=== PATIENT | male | born 1970 | race Caucasian/White ===

== ENCOUNTER 2017-01-22 16:27 | Emergency (ER) | payer OTHER ==
[~2017-01-22] VITALS: Ht 175.3 cm; Wt 93.3 kg
[~2017-01-22 16:27] MED LIST: AMBI10TA OR; AMIT50TA2 OR; ATIV1TAB2 OR; CLON0.3T OR; EPIP0.3I IM; PRIL20CA OR; TRAZODONE PO; Ultram OR; VALI10TA OR
[2017-01-22] MEDS ORDERED: HYDR50TA70 PO (17:08)
[2017-01-22] MEDS ORDERED: TRAZ1TAB14 PO (17:08)
[2017-01-22] MEDS ORDERED: DIAZ10TA2 PO (17:08)
[2017-01-22] MEDS ORDERED: adderall PO (17:08)
[2017-01-22] MEDS ORDERED: TIZA4CAP3 PO (17:08)
[2017-01-22] MEDS ORDERED: CLEO300C2 PO (17:28)
[2017-01-22] MEDS ORDERED: ALBE200T7 PO (18:40)
[2017-01-22 18:53] VITALS: BP 147/94
== END 2017-01-22 19:09 | disposition home or self-care (01) ==
LOC: M ED 16:27
DX: B88.9 Infestation, unspecified (principal); Z79.899 Other long term (current) drug therapy; Z79.2 Long term (current) use of antibiotics

== ENCOUNTER 2017-01-27 16:27 | Emergency (ER) | payer OTHER ==
[~2017-01-27] VITALS: Ht 175.3 cm; Wt 90.9 kg
[2017-01-27 16:27] VITALS: BP 159/100
[~2017-01-27 16:27] MED LIST changes: +ALBE200T7 PO; +CLEO300C2 PO; +DIAZ10TA2 PO; +HYDR50TA70 PO; +TIZA4CAP3 PO; +TRAZ1TAB14 PO; +adderall PO
[2017-01-27] MEDS ORDERED: ALBE200T7 PO ×2 (17:42→18:06)
--- NOTE | 2017-01-27 18:02 | ED PDOC ---
Post-Departure Follow-Up PT PRESENTS AGAIN TODAY WITH HIS . THIS COUPLE SAW THIS FIELD HAND FOR THE SAME RECENTLY AND COMPLAIN THAT NOW THEIR SYMPTOMS ARE WORSE. PT WERE SEEN INITIALLY FOR SUSPECTED SKIN PARASITES. PTS HAD PICTURES ON THEIR PHONES OF DIFFERENT THINGS THAT RESEMBLED WORMS OR CRABS AND HAVE BEEN AFFECTING THIS COUPLE SINCE NOVEMBER 2016. PTS WERE PRESCRIBED AN ANTI-PARASITIC MEDICATION ALBENZA AND DISCHARGED. PTS STATE THAT THEY RECEIVED THE MEDICATION AND STARTED IT TODAY AND BELIEVE THAT NOW THE PARASITES ARE CRAWLING OUT OF THEIR SKIN. COMPLAINS OF PAIN AT A SITE OF A MOLE/SKIN TAG WHERE WORMS WERE CRAWLING OUT OF HER EARLIER TODAY AND THAT THEY HAVE SAMPLES OF THE PARASITES WITH THEM. THIS PT HAS A BAG OF DIFFERENT CONTAINERS, CLEAR TAPE WITH "SAMPLES". NONE OF THESE APPEAR TO BE ANY SORT OF LIVING OR ONCE-LIVING CREATURE. ONE CONTAINER APPEARED TO HAVE A BALL OF HAIR IN IT AND THE STATED THAT IF WE TURNED IT OVER, " YOU CAN SEE IT'S DIGESTIVE SYSTEM AND THESE ARE IT'S ANTENNA AND CAN YOU SEE IT' S TAIL?" PTS ARE DISTRESSED IN ROOM AND STATING THEY WILL GO HOME AND CONTINUE TO PICK AT ONE ANOTHER WITH TWEEZERS BECAUSE THE MEDICATION IS WORKING. SATHYA ARRIETA PA-C Jan 27, 2017 18:02
== END 2017-01-27 18:02 | disposition home or self-care (01) ==
LOC: M ED 16:27
DX: B89 Unspecified parasitic disease (principal); I10 Essential (primary) hypertension; F41.9 Anxiety disorder, unspecified; F32.9 Major depressive disorder, single episode, unspecified; Z79.899 Other long term (current) drug therapy

== ENCOUNTER 2017-01-28 13:34 | Emergency (ER) | payer OTHER ==
[2017-01-28 16:45] LABS: MEAN CORPUSCULAR HEMOGLOBIN 29.8 pg (27.0-33.0); MEAN CORPUSCULAR HGB CONC 35.1 g/dl (32.0-36.5); RED CELL DISTRIBUTION WIDTH 13.5 % (11.5-14.5); WHITE BLOOD COUNT 8.3 K/mm3 (4.0-10.0)
[2017-01-28 17:20] LABS: ALBUMIN/GLOBULIN RATIO 1.21 (1.00-1.93); ALKALINE PHOSPHATASE 106 U/L (45-117); ALT/SGPT 26 U/L (12-78); ANION GAP 7 MEQ/L (8-16); AST/SGOT 16 U/L (15-37); BILIRUBIN,DIRECT 0.2 MG/DL (0.0-0.2); BILIRUBIN,TOTAL 0.6 MG/DL (0.2-1.0); BLOOD UREA NITROGEN 18 MG/DL (7-18); CARBON DIOXIDE LEVEL 27 MEQ/L (21-32); CHLORIDE LEVEL 105 MEQ/L (98-107); CREATININE FOR GFR 1.27 MG/DL (0.70-1.30); GLOMERULAR FILTRATION RATE > 60.0 (>60); GLUCOSE, FASTING 105 MG/DL (70-105); POTASSIUM SERUM 4.2 MEQ/L (3.5-5.1); SODIUM LEVEL 139 MEQ/L (136-145); TOTAL PROTEIN 7.3 GM/DL (6.4-8.2)
[2017-01-28 18:56] LABS: METHADONE URINE NEGATIVE (NEGATIVE)
[2017-01-28 21:57] VITALS: BP 128/81
== END 2017-01-28 22:11 | disposition home or self-care (01) ==
LOC: M ED 13:34 → EDBD 13:34 → M ED 22:11
DX: F43.0 Acute stress reaction (principal); F17.200 Nicotine dependence, unspecified, uncomplicated; Z79.899 Other long term (current) drug therapy

== ENCOUNTER → 2017-01-31 | Outpatient (REF) | payer OTHER ==
[~2017-01-31] MED LIST changes: +ADDE1TAB14 PO; +CLON0.3T PO; +GABA-279 PO; +GABA-283 PO; +HYDR50CA2 PO; +MELO7.5T7 PO
== END ==
LOC: M SFHCPLAZ 16:04
PROVIDERS: ATTEND Internal Medicine Infectious Disease
DX: R21 Rash and other nonspecific skin eruption (principal)

== ENCOUNTER → 2017-02-12 | Outpatient (REF) | payer OTHER | LOC: M SFHCLERA 11:37 | PROVIDERS: ATTEND Dermatology | DX: L98.9 Disorder of the skin and subcutaneous tissue, unspecified (principal) ==

== ENCOUNTER 2017-02-19 12:00 | Inpatient (IN) | payer OTHER ==
[~2017-02-19] VITALS: Ht 175.3 cm; Wt 90.4 kg
[2017-02-19] MEDS: NICOTINE 21MG/24HR 1 EA TRANSDERMAL TD SCH (09:00)
[~2017-02-19 12:00] MED LIST changes: -ADDE1TAB14 PO; -CLON0.3T PO; -GABA-279 PO; -GABA-283 PO; -HYDR50CA2 PO; -MELO7.5T7 PO
[2017-02-19] MEDS ORDERED: MELO7.5T7 PO (12:36)
[2017-02-19] MEDS ORDERED: GABA-283 PO (12:36)
[2017-02-19 13:11] LABS: MEAN CORPUSCULAR HEMOGLOBIN 30.6 pg (27.0-33.0); MEAN CORPUSCULAR HGB CONC 35.7 g/dl (32.0-36.5); MEAN CORPUSCULAR VOLUME 85.7 fl (80.0-96.0); RED CELL DISTRIBUTION WIDTH 13.7 % (11.5-14.5); WHITE BLOOD COUNT 4.1 K/mm3 (4.0-10.0)
[2017-02-19] MEDS ORDERED: KETOROLAC 30 MG/ML VIAL (J1885) IM ONE (13:15)
[2017-02-19 13:39] LABS: ALBUMIN 3.4 GM/DL (3.2-5.2); ALBUMIN/GLOBULIN RATIO 1.13 (1.00-1.93); ALKALINE PHOSPHATASE 93 U/L (45-117); ALT/SGPT 33 U/L (12-78); ANION GAP 8 MEQ/L (8-16); AST/SGOT 17 U/L (15-37); BILIRUBIN,DIRECT 0.2 MG/DL (0.0-0.2); BILIRUBIN,TOTAL 0.5 MG/DL (0.2-1.0); BLOOD UREA NITROGEN 21 MG/DL (7-18); CALCIUM LEVEL 8.4 MG/DL (8.5-10.1); CARBON DIOXIDE LEVEL 28 MEQ/L (21-32); CHLORIDE LEVEL 103 MEQ/L (98-107); CREATININE FOR GFR 1.03 MG/DL (0.70-1.30); GLOMERULAR FILTRATION RATE > 60.0 (>60); GLUCOSE, FASTING 98 MG/DL (70-105); SODIUM LEVEL 139 MEQ/L (136-145); TOTAL PROTEIN 6.4 GM/DL (6.4-8.2)
[2017-02-19] MEDS ORDERED: POTASSIUM CHLORIDE 10 MEQ SR TABLET PO ONE (13:45)
[2017-02-19 15:08] LABS: METHADONE URINE NEGATIVE (NEGATIVE)
[2017-02-19] MEDS ORDERED: diazePAM 5 MG TAB PO ONE (16:15)
[2017-02-19] MEDS ORDERED: ADDE1TAB14 PO (17:03)
[2017-02-19] MEDS ORDERED: GABA-279 PO (17:03)
[2017-02-19] MEDS ORDERED: CLON0.3T PO (17:03)
[2017-02-19] MEDS ORDERED: HYDR50CA2 PO (17:04)
[2017-02-19 18:19] VITALS: BP 136/85
[2017-02-19] MEDS ORDERED: MAALOX 30 ML SUSP *UDC PO PRN (19:30)
[2017-02-19] MEDS ORDERED: hydrOXYzine 50 MG TAB PO PRN (19:30)
[2017-02-19] MEDS ORDERED: MOM 30ML SUSPENSION UDC PO PRN (19:30)
[2017-02-19] MEDS: ADDERALL 5 MG TAB PO SCH (21:00)
[2017-02-19] MEDS: tiZANidine 4 MG TAB PO PRN (21:11)
[2017-02-19] MEDS: cloNIDine 0.1 MG TAB PO SCH (21:12)
[2017-02-19] MEDS: traZODone 50 MG TAB PO SCH (21:12)
[2017-02-20 07:20] VITALS: BP 136/87
[2017-02-20] MEDS: NICOTINE 21MG/24HR 1 EA TRANSDERMAL TD SCH (08:06)
[2017-02-20] MEDS: ADDERALL 5 MG TAB PO SCH (08:07)
[2017-02-20] MEDS: cloNIDine 0.1 MG TAB PO SCH ×3 (08:07→20:25)
[2017-02-20] MEDS: diazePAM 10 MG TAB PO PRN ×3 (08:09→21:12)
--- NOTE | 2017-02-20 09:28 | HPEPDOC ---
Medical History and Physical Date of Admission Feb 19, 2017 at 16:14 History and Physical PCP: Dr Almaguer ATTENDING: Dr. Xiang You HPI: 46yoM admitted to [facility] for unspecified psychotic disorder, being medically examined today. The patient is very anxious today. He states he has forms and parasites. He has apparently had multiple emergency room visits and primary care visits related to this. He was treated for scabies with permethrin and subsequently used 2. He was also treated through the emergency department with course of Albenza. He was also referred to Dr. Shannon, infectious disease related to this. 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 Second opinion however was requested with dermatology. This referral is pending. Wound culture was obtained 01/31/17 which was negative. Nasal/sinus culture was obtained 01/31/17 which indicated normal oliver. GI panel was requested however there were no results available for this. Today the patient provides a sample cup with what he states are bugs that he believes are coming out of him. This does not appear to be any type of insect or worm. He believes a worm is also coming out of the left groin area. Patient also states he has pain in the right foot. He does not recall any injury. No swelling or redness. Denies any fevers, chills, weakness, fatigue, RESENDEZ, CP, SOB, cough, palpitations, abdominal pain, N/V/D or changes in bowel or bladder habits. PMHx: Hypertension ADD Panic disorder DDD lumbar Insomnia Depression PSHX: Pilonidal cyst Right middle finger SOCHX: Resides in: [place], living in a motel with his family Marital Status: Kids: 2 Employment: Unemployed Tobacco use: vape ETOH: Denies Illicit Drugs: Denies IV Drug Use: Denies Tattoos done unprofessionally: 1 FAMHX: Mother: Alive, CVA Father: Alive, dementia Siblings: One brother Alive, well Children: Alive, well Unexpected deaths due to medical reasons: None. ROS: As noted in HPI, otherwise 11pt ROS of systems reviewed and remarkable for bilateral arm excoriations. Left ear excoriation. Patient states these are areas where bugs are coming out. He denies picking or scratching. PE: GEN: 46 yo M, appears stated age. Well-nourished, well developed. Anxious appearing. Alert and oriented x 3. HEENT: Normocephalic, atraumatic. Pupils are equal, round, and reactive to light. Extraocular movements are intact. No nystagmus appreciated. Sclera are nonicteric. Conjunctiva without injection. Nose midline. Nasal turbinates without bogginess. EACs both patent BL. TMs both visualized and seth with good cone of light, no bulging or erythema. No facial asymmetry. Moist mucous membranes. Dentition fair. Pharynx pink and moist, no cobblestoning. Neck supple , trachea midline. No lymphadenopathy or thyromegaly appreciated. CHEST: Regular rate and rhythm, +S1, +S2 LUNGS: Clear to auscultation bilaterally. No wheezes, rales, or rhonchi. Breathing appears symmetric and easy. Patient is speaking in full sentences. No accessory muscle use. ABD: Round, soft, non-tender, non-distended. +Bowel sounds throughout. No rebound or guarding. No costovertebral angle tenderness. EXT: Pulses 2+ bilaterally dorsalis pedis and radial. No lower extremity edema appreciated. SKIN: [place], dry, warm. Capillary refill <2sec. Excoriations are noted of the forearms bilaterally. There is a healed scar noted at the left groin. No erythema. No edema. No rashes. NEURO: No focal deficits appreciated. EKG: Pending. Wound culture 01/31/17 GRAM STAIN Final NO CELLS SEEN NO ORGANISMS SEEN WOUND CULTURE Final FULL REPORT IN LAB NOTES ([facility] and [facility]). NO GROWTH AEROBICALLY Nasal culture 01/31/17 NASAL AND SINUS CULTURE Final FULL REPORT IN LAB NOTES ([facility] and [facility]). NORMAL OLIVER PRESENT Parasite identification 01/27/17 PARASITE ID Final NO PARASITES NOTED IN SPECIMEN. A&P: 46yoM admitted to [facility] for unspecified psychotic disorder 1. Psych. Plan per Psychiatry. Obtain baseline EKG to assure the safety of psychiatric medications as they can prolong the QT interval. Request UA/urine culture. Request CT scan brain. 2. Nicotine dependence. Patch available. 3. Chronic back pain. Continue gabapentin 100 mg 3 times a day as needed. Continue tizanidine 4 mg twice a day as needed. Continue Tylenol 650 mg every 6 hours as needed. 4. Follow up with PCP on discharge. 5. Substance use. Per psychiatry. 6. Hypertension. Continue clonidine 0.3 mg by mouth 3 times a day. 7. Excoriations bilateral forearms. Apply bacitracin and dry dressing as needed. 8. Pt concern for parasitic infection. Patient has completed 2 treatments of permethrin. Completed course of Albenza. Seen by infectious disease, Dr Shannon, with impression of delusions of parasitosis. Second opinion with dermatology was pending. Request GI panel. Stool for ova/parasites. Parasite identification of provided sample requested. 9. Mild anemia. Update CBC. Request iron studies, B12, folate. 10. Abnormal TSH. Recheck TFTs. 11. Hypokalemia. Improved oral intake. Recheck CMP. 12. Right foot pain. Check x-ray of right foot. Check uric acid. Tylenol as needed. 13. Staff member Joesph present throughout exam Vital Signs Vital Signs Date Time Temp Pulse Resp B/P (MAP) Pulse Ox O2 Delivery O2 Flow Rate FiO2 02/20/17 08:07 136/87 02/20/17 07:20 98.1 77 20 Room Air 02/19/17 18:19 98 Laboratory Data Labs 24H Laboratory Tests 2 02/19/17 12:59: Urine Amphetamines Screen POSITIVEH, Urine Benzodiazepines Screen POSITIVEH, Urine Opiates Screen NEGATIVE, Urine Methadone Screen NEGATIVE, Urine Barbiturates Screen NEGATIVE, Urine Phencyclidine Screen NEGATIVE, Urine Cocaine Metabolite Screen NEGATIVE, Urine Cannabinoids Screen POSITIVEH 02/19/17 13:00: Anion Gap 8, Glomerular Filtration Rate > 60.0, Calcium Level 8.4L, Aspartate Amino Transf (AST/SGOT) 17, Alanine Aminotransferase (ALT/SGPT) 33, Alkaline Phosphatase 93, Total Bilirubin 0.5, Direct Bilirubin 0.2, Total Protein 6.4, Albumin 3.4, Albumin/Globulin Ratio 1.13, Thyroid Stimulating Hormone (TSH) 0.021L, Salicylates Level < 1.7L, Acetaminophen Level < 2.0L, Ethyl Alcohol Level < 0.003 CBC/BMP Laboratory Tests 02/19/17 13:00 Red Blood Count 4.42, Mean Corpuscular Volume 85.7, Mean Corpuscular Hemoglobin 30.6, Mean Corpuscular Hemoglobin Concent 35.7, Red Cell Distribution Width 13.7 Home Medications Scheduled Clonidine Hydrochloride (Clonidine HCl) 0.3 Mg Tab, 0.3 MG PO TID Trazodone HCl (Trazodone HCl) 150 Mg Tab, 150 MG PO QHS Scheduled PRN Diazepam (Diazepam) 10 Mg Tab, 10 MG PO Q6HP PRN for ANXIETY/AGITATION Gabapentin (Gabapentin) 100 Mg Cap, 100 MG PO TID PRN for PAIN Hydroxyzine Pamoate (Hydroxyzine Pamoate) 50 Mg Cap, 50 MG PO Q4H PRN for ANXIETY Meloxicam (Meloxicam) 7.5 Mg Tab, 7.5 MG PO PRN PRN for pain Tizanidine Hydrochloride (Tizanidine HCl) 4 Mg Cap, 4 MG PO BID PRN for MUSCLE SPASMS Allergies Coded Allergies: No Known Allergies (Unverified , 01/22/17) Ema Lim Feb 20, 2017 09:28
[2017-02-20] MEDS: GABAPENTIN 100 MG CAP PO PRN ×2 (10:00→17:04)
[2017-02-20] MEDS: ACETAMINOPHEN TAB 650MG DOSE (2X325MG) PO PRN ×2 (10:00→20:26)
--- NOTE | 2017-02-20 10:17 | REP ---
Right foot four views : There is no fracture or dislocation. Mineralization and joint spaces are normal. There are no calcifications or foreign bodies. Impression: Negative right foot . Signed by Danny Falcon MD 02/20/2017 10:08 A
--- NOTE | 2017-02-20 10:26 | REP ---
CT Head without contrast HISTORY: Altered mental status COMPARISON: 01/05/2011 There is no intraparenchymal hemorrhage, acute infarct, mass or midline shift. The ventricular system and cortical sulci are dilated consistent with minimal volume loss. There is no extra cerebral collection. There is no fracture. The visualized sinuses are clear. IMPRESSION: Minimal volume loss. Signed by Elias Azul MD 02/20/2017 10:17 A
[2017-02-20 10:48] LABS: BASO % 0.4 % (0.0-1.0); EOS % 0.4 % (0.0-3.0); LARGE UNSTAINED CELL # 0.1 K/mm3 (0.0-0.4); LARGE UNSTAINED CELL % 1.6 % (0.0-4.0); LYMPH # 1.4 K/mm3 (1.5-4.5); LYMPH % 16.4 % (24.0-44.0); MEAN CORPUSCULAR HEMOGLOBIN 29.6 pg (27.0-33.0); MEAN CORPUSCULAR HGB CONC 33.9 g/dl (32.0-36.5); MEAN CORPUSCULAR VOLUME 87.5 fl (80.0-96.0); MONO # 0.4 K/mm3 (0.0-0.8); MONO % 5.2 % (0.0-5.0); NEUTROPHILS # 5.8 K/mm3 (1.8-7.7); NEUTROPHILS % 76.1 % (36.0-66.0); PLATELET COUNT, AUTOMATED 249 k/mm3 (150-450); RED CELL DISTRIBUTION WIDTH 13.8 % (11.5-14.5); WHITE BLOOD COUNT 7.7 K/mm3 (4.0-10.0)
[2017-02-20 11:15] LABS: FOLATE 3.1 NG/ML (>5.4); VITAMIN B12 LEVEL 440 PG/ML (247-911)
[2017-02-20 11:17] LABS: ALBUMIN 3.6 GM/DL (3.2-5.2); ALBUMIN/GLOBULIN RATIO 1.09 (1.00-1.93); ALKALINE PHOSPHATASE 108 U/L (45-117); ALT/SGPT 35 U/L (12-78); ANION GAP 6 MEQ/L (8-16); AST/SGOT 18 U/L (15-37); BILIRUBIN,TOTAL 0.3 MG/DL (0.2-1.0); BLOOD UREA NITROGEN 22 MG/DL (7-18); CALCIUM LEVEL 8.8 MG/DL (8.5-10.1); CARBON DIOXIDE LEVEL 31 MEQ/L (21-32); CHLORIDE LEVEL 104 MEQ/L (98-107); CREATININE FOR GFR 0.98 MG/DL (0.70-1.30); FERRITIN 106 NG/ML (26-388); GLOMERULAR FILTRATION RATE > 60.0 (>60); GLUCOSE, FASTING 109 MG/DL (70-105); PERCENT SATURATION 33.2 % (19.7-50.0); SODIUM LEVEL 141 MEQ/L (136-145); T UPTAKE 35 % (33-40); THYROXINE (T4) 9.5 UG/DL (4.5-12.0); TOTAL IRON BINDING CAPACITY 271 UG/DL (250-450); TOTAL PROTEIN 6.9 GM/DL (6.4-8.2); URIC ACID 5.6 MG/DL (3.5-7.2)
[2017-02-20] MEDS: FOLIC ACID 1 MG TAB PO SCH (14:56)
--- NOTE | 2017-02-20 16:54 | REP ---
Thyroid ultrasound: The thyroid right lobe is mildly enlarged measuring 5.2 x 1.6 x 1.4 cm. The thyroid left lobe is normal size measuring 4.6 x 1.6 x 1.3 cm. The thyroid parenchyma is homogeneous. There are no nodules, masses or cysts. The isthmus is upper normal size measuring 4 mm thickness. Impression: Normal thyroid ultrasound. Signed by Danny Falcon MD 02/20/2017 04:45 P
[2017-02-20 18:00] VITALS: BP 164/88
--- NOTE | 2017-02-20 18:42 | MHHPE ---
DATE OF ADMISSION: 02/19/2017 CURRENT MEDICATIONS: - Valium 10 mg four times a day as needed - trazodone 150 mg at bedtime - Adderall 30 mg twice a day - clonidine 0.3 mg three times a day - Wellbutrin XL 300 mg every morning CHIEF COMPLAINT: Parasites. HISTORY OF PRESENT ILLNESS: This is a 46-year-old white male, , living with his and 9-year-old son. The patient claims to have parasites on his body. He has been to see multiple medical providers and dermatologists. 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 The patient, himself, denies that he is delusional. He is convinced that his apartment is infested by bugs. He is using bleach on the bernard and floors. He washes it over and over again. He is vacuuming the floors constantly. The patient was told by his deputy prosecuting attorney not to pay the rent due to the bug infestation. Subsequently, he has a court hearing tomorrow at 5:00 p.m. for eviction. The patient claims that he and his family are planning on moving out of state in the near future. The patient minimizes any depressive symptoms. He states that any depressive symptoms last for at most 3-5 hours at a time. He claims his appetite is good. He has lost about five pounds recently as he is so busy cleaning. He claims his concentration is fine. He is on Adderall. The patient states his energy level is fine. He sleeps well at night. The patient is on a high dose of Valium. He takes between 30 and 40 mg of Valium per day. He is vague about any anxiety disorder symptoms. The patient does have a history of drug abuse. He was in a drug rehabilitation program in the past for cannabis. The patient has attended [facility] in the past as well. The patient is unclear why he is here in the hospital. He does not believe that he has a psychiatric disorder. He is pleased, however, that the physician's clinical trials assistant has ordered some medical tests. PAST PSYCHIATRIC HISTORY: The patient is in treatment at [facility] for the past five years. The patient was in treatment in [place] for anxiety symptoms years ago. He claims he was hospitalized once here at [facility] for 36 hours about six years ago. The patient claims that he was on Tegretol and Zoloft in the past in [place] and that he might have been diagnosed with bipolar at that time. PAST MEDICAL HISTORY: Gout, hypertension. ALLERGIES: To medication, the patient denies. LEGAL ISSUES: The patient has a court hearing tomorrow. CHEMICAL DEPENDENCY: The patient's drug of choice is cannabis. SOCIAL HISTORY: The patient was born in [place]. He has two years of college. 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 The patient has been for 12 years. Both of his parents are alive. His mother has had two cerebrovascular accidents (CVAs). The patient has one brother who was in the . FAMILY PSYCHIATRIC HISTORY: The patient denies. MENTAL STATUS EXAMINATION: The patient is alert and oriented. He is quite anxious. The patient appears to have delusional beliefs about the parasitosis. He denies any auditory hallucinations. He denies feeling paranoid. No signs of grandiosity. Insight appears limited. Judgment appears limited. He is not currently depressed. He is not manic. No signs of impulsivity or dangerousness. Memory functions appear intact. ASSESSMENT: The patient appears to have chronic delusional beliefs, best suited for treatment with an antipsychotic. However, he refuses such, claiming that these symptoms are real. He prefers to stay with his Valium and Adderall combination. It is most likely that the Adderall is actually aggravating his mental status and contributing to his delusional beliefs. PLAN: Staff to contact family and outpatient provider with likely discharge tomorrow as there are no safety concerns for this patient. OSMEL
[2017-02-20] MEDS: traZODone 50 MG TAB PO SCH (20:26)
[2017-02-20] MEDS: tiZANidine 4 MG TAB PO PRN (21:12)
--- NOTE | 2017-02-20 21:49 | ECGEPIP ---
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
[2017-02-21] MEDS: diazePAM 10 MG TAB PO PRN (05:32)
[2017-02-21 07:00] VITALS: BP 131/90
[2017-02-21 08:18] VITALS: BP 150/84
[2017-02-21] MEDS: FOLIC ACID 1 MG TAB PO SCH (08:18)
[2017-02-21] MEDS: cloNIDine 0.1 MG TAB PO SCH (08:18)
[2017-02-21] MEDS ORDERED: buPROPion **XL** TABLET 150MG (WELLBUTRIN XL) PO SCH (09:00)
[2017-02-21] MEDS: NICOTINE 21MG/24HR 1 EA TRANSDERMAL TD SCH (09:00)
--- NOTE | 2017-02-22 15:23 | MHDS ---
DATE OF ADMISSION: 02/18/2017 DATE OF DISCHARGE: 02/21/2017 VITAL SIGNS: Temperature 97.8, pulse 77, respirations 18, blood pressure 131/90. LABORATORY DATA: CBC and differential within normal limits. Chemistry: The patient's BUN was elevated at 21 and 22. TSH low. Toxicology: Positive for amphetamines, benzodiazepine, and cannabinoids. DISCHARGE MEDICATIONS: - Wellbutrin XL 300 mg in the morning - trazodone 150 mg at night - diazepam 10 mg every 6 hours as needed - gabapentin 100 mg three times a day as needed for pain DISCHARGE DIAGNOSIS: Delusional disorder, somatic type, F22. CHIEF COMPLAINT: Parasites. HISTORY OF PRESENT ILLNESS: This is a 46-year-old white male, , living with his and 9-year-old son. The patient has a delusional belief that he has parasites coming out of his body, infesting his skin. He is convinced that the apartment was contaminated. He was spending hours spreading bleach on the floor, vacuuming the floor over and over again. The patient has been in to see multiple primary care physicians and dermatologists. Dr. Shannon, local infectious disease, has diagnosed him with "delusional parasitosis." PROGRESS ON THE UNIT: The patient was admitted on a 9.39 basis; however, the patient is not voicing any wish to harm himself or others. The patient clearly can function in the community, even though he has this delusional belief. He is convinced that he has a true medical condition. He refuses to take any antipsychotics. He refused Risperdal, for example, or any other medications in that class. THe patient is on Adderall, which might be contributing to his psychotic symptoms. The Adderall was discontinued here in the hospital. The patient is recommended to discontinue the Adderall upon discharge. The patient is also on a high dose of Valium. The patient signed a release for his outpatient provider and [facility]. Discharge plan is to coordinate treatment and discharge plans. As the patient did not believe that he had a psychiatric disorder and that the patient shows no signs of dangerousness or inability to take care of himself, the patient is to be discharged back to the community. Staff contacted his who confirms that the patient is not a danger to self or others and that she feels comfortable having him return home. MENTAL STATUS EXAMINATION: The patient is alert and oriented. He is reasonably cooperative. He does appear quite anxious. He reports delusional beliefs about the parasites underneath his skin. Denies any auditory hallucinations. He has possible visual hallucinations. Having shown the alleged parasites to medical staff, which are nonexistent. The patient is not hearing voices. No signs of ron. Insight appears poor. Judgment appears limited. No signs of impulsivity or dangerousness. No cognitive deficits noted. ASSESSMENT: The patient does not appear to require inpatient hospital care. He is referred back to his outpatient provider. PLAN: Discharge today. Patient is to return home to his family. Patient is strongly encouraged to discontinued his Adderall, which may be contributing to his delusional beliefs.
[2017-02-24 10:11] LABS: O+P EXAM Final report (.)
== END 2017-02-21 13:00 | disposition home or self-care (01) | DRG 760 ==
LOC: M ED 12:00 → M ED INP 16:14 → M PSY 18:12
PROVIDERS: ADMIT Psychiatry & Neurology Psychiatry; ATTEND Psychiatry & Neurology Psychiatry
DX: F22 Delusional disorders (principal); I10 Essential (primary) hypertension; Z79.899 Other long term (current) drug therapy; G47.00 Insomnia, unspecified; M51.36 Other intervertebral disc degeneration, lumbar region; F17.200 Nicotine dependence, unspecified, uncomplicated; D64.9 Anemia, unspecified; E87.6 Hypokalemia

== ENCOUNTER 2017-07-10 15:01 | Emergency (ER) | payer MEDICAID, SELFPAY, OTHER ==
[2017-07-10] MEDS ORDERED: LIDOCAINE VISCOUS 2% SOLN 15ML UDC TOP ×2 (16:00)
[2017-07-10] MEDS ORDERED: AMOXICILLIN 500 MG CAP PO ×2 (16:00)
== END 2017-07-10 15:48 | disposition home or self-care (01) ==
LOC: M ED 15:01
DX: Z76.0 Encounter for issue of repeat prescription (principal); I10 Essential (primary) hypertension; F90.9 Attention-deficit hyperactivity disorder, unspecified type; F41.9 Anxiety disorder, unspecified; F32.9 Major depressive disorder, single episode, unspecified; Z87.891 Personal history of nicotine dependence; Z79.899 Other long term (current) drug therapy
CPT/HCPCS: 99282

== ENCOUNTER 2018-01-01 14:13 | Emergency (ER) | payer OTHER, MEDICAID ==
[2018-01-01 15:36] LABS: HEMATOCRIT 40.5 % (42.0-52.0); HEMOGLOBIN 14.6 g/dl (13.5-17.5); MEAN CORPUSCULAR HEMOGLOBIN 30.7 pg (27.0-33.0); MEAN CORPUSCULAR VOLUME 85.3 fl (80.0-96.0); PLATELET COUNT, AUTOMATED 230 10^3/uL (150-450); RED BLOOD COUNT 4.75 10^6/uL (4.30-6.10); RED CELL DISTRIBUTION WIDTH 12.4 % (11.5-14.5); WHITE BLOOD COUNT 7.9 10^3/uL (4.0-10.0)
[2018-01-01 16:04] LABS: AMPHETAMINES LEVEL URINE NEGATIVE (NEGATIVE); BARBITURATES URINE NEGATIVE (NEGATIVE); BENZODIAZEPINES URINE NEGATIVE (NEGATIVE); CANNABINOIDS URINE POSITIVE (NEGATIVE); COCAINE METABOLITE URINE NEGATIVE (NEGATIVE); METHADONE URINE NEGATIVE (NEGATIVE); OPIATES URINE NEGATIVE (NEGATIVE); PHENCYCLIDINE URINE NEGATIVE (NEGATIVE)
[2018-01-01 16:16] LABS: ACETAMINOPHEN LEVEL < 2.0 UG/ML (10.0-30.0); ALBUMIN 3.3 GM/DL (3.2-5.2); ALBUMIN/GLOBULIN RATIO 1.14 (1.00-1.93); ALKALINE PHOSPHATASE 85 U/L (45-117); ALT/SGPT 27 U/L (12-78); ANION GAP 8 MEQ/L (8-16); AST/SGOT 12 U/L (7-37); BILIRUBIN,DIRECT < 0.1 MG/DL (0.0-0.2); BILIRUBIN,TOTAL 0.3 MG/DL (0.2-1.0); BLOOD UREA NITROGEN 11 MG/DL (7-18); CALCIUM LEVEL 8.1 MG/DL (8.5-10.1); CARBON DIOXIDE LEVEL 27 MEQ/L (21-32); CHLORIDE LEVEL 109 MEQ/L (98-107); CREATININE FOR GFR 1.41 MG/DL (0.70-1.30); GLOMERULAR FILTRATION RATE 56.9 (>60); GLUCOSE, FASTING 112 MG/DL (70-100); POTASSIUM SERUM 3.7 MEQ/L (3.5-5.1); SALICYLATE LEVEL 2.8 MG/DL (5.0-30.0); SODIUM LEVEL 144 MEQ/L (136-145); THYROID STIMULATING HORMONE 0.585 uIU/ML (0.358-3.740); TOTAL PROTEIN 6.2 GM/DL (6.4-8.2)
[2018-01-01 16:22] LABS: ETHYL ALCOHOL (ETHANOL) < 0.003 % (0.000-0.010)
== END 2018-01-01 17:49 | disposition home or self-care (01) ==
LOC: M ED 14:13
DX: F43.0 Acute stress reaction (principal); F32.9 Major depressive disorder, single episode, unspecified; F41.9 Anxiety disorder, unspecified; F90.9 Attention-deficit hyperactivity disorder, unspecified type; Z79.899 Other long term (current) drug therapy
CPT/HCPCS: 80320

== ENCOUNTER 2018-02-05 15:26 | Emergency (ER) | payer OTHER | END 2018-02-05 16:35 | disposition left against medical advice (07) | LOC: M ED 15:26 | DX: Z53.29 Procedure and treatment not carried out because of patient's decision for other reasons (principal) ==

== ENCOUNTER 2018-02-15 20:13 | Emergency (ER) | payer OTHER ==
[2018-02-15] MEDS: cloNIDine 0.1 MG TAB PO (21:45)
== END 2018-02-15 21:54 | disposition home or self-care (01) ==
LOC: M ED 20:13
DX: Z76.0 Encounter for issue of repeat prescription (principal); I10 Essential (primary) hypertension; F90.9 Attention-deficit hyperactivity disorder, unspecified type; Z79.899 Other long term (current) drug therapy; Z77.098 Contact with and (suspected) exposure to other hazardous, chiefly nonmedicinal, chemicals
CPT/HCPCS: 99282

== ENCOUNTER 2018-03-07 17:28 | Emergency (ER) | payer OTHER ==
[2018-03-07] MEDS: cloNIDine 0.1 MG TAB PO (18:16)
== END 2018-03-07 18:21 | disposition home or self-care (01) ==
LOC: M ED 17:28
DX: I10 Essential (primary) hypertension (principal); Z76.0 Encounter for issue of repeat prescription; F90.9 Attention-deficit hyperactivity disorder, unspecified type; Z79.899 Other long term (current) drug therapy
CPT/HCPCS: 99283

== ENCOUNTER 2018-03-12 15:08 | Emergency (ER) | payer OTHER | END 2018-03-12 17:19 | disposition home or self-care (01) | LOC: M ED 15:08 | DX: Z76.0 Encounter for issue of repeat prescription (principal); I10 Essential (primary) hypertension; F33.9 Major depressive disorder, recurrent, unspecified; F41.9 Anxiety disorder, unspecified; F90.9 Attention-deficit hyperactivity disorder, unspecified type; Z79.899 Other long term (current) drug therapy; Z77.098 Contact with and (suspected) exposure to other hazardous, chiefly nonmedicinal, chemicals | CPT/HCPCS: 99283 ==

== ENCOUNTER 2018-04-11 12:53 | Emergency (ER) | payer OTHER ==
[2018-04-11 14:04] LABS: BASO % 0.6 % (0.0-1.0); EOS # 0.1 10^3/uL (0.0-0.50); EOS % 0.9 % (0.0-3.0); HEMATOCRIT 46.9 % (42.0-52.0); HEMOGLOBIN 16.6 g/dl (13.5-17.5); IMMATURE GRANULOCYTE % 0.2 % (0-3.0); LYMPH # 1.4 10^3/uL (1.5-4.5); LYMPH % 26.9 % (24.0-44.0); MEAN CORPUSCULAR HEMOGLOBIN 31.2 pg (27.0-33.0); MEAN CORPUSCULAR HGB CONC 35.4 g/dl (32.0-36.5); MEAN CORPUSCULAR VOLUME 88.2 fl (80.0-96.0); MONO # 0.4 10^3/uL (0.0-0.8); MONO % 6.8 % (0.0-5.0); NEUTROPHILS # 3.4 10^3/uL (1.8-7.7); NEUTROPHILS % 64.6 % (36.0-66.0); PLATELET COUNT, AUTOMATED 268 10^3/uL (150-450); RED BLOOD COUNT 5.32 10^6/uL (4.30-6.10); RED CELL DISTRIBUTION WIDTH 12.8 % (11.5-14.5); WHITE BLOOD COUNT 5.3 10^3/uL (4.0-10.0)
[2018-04-11 14:08] LABS: APPEARANCE, URINE CLEAR (CLEAR); BACTERIA, URINE AUTO NEGATIVE (NEGATIVE); BILIRUBIN, URINE AUTO NEGATIVE (NEGATIVE); BLOOD, URINE BLOOD NEGATIVE (NEGATIVE); COLOR, URINE YELLOW (YELLOW); GLUCOSE, URINE (UA) AUTO NEGATIVE (NEGATIVE); KETONE, URINE AUTO NEGATIVE (NEGATIVE); LEUKOCYTE ESTERASE, URINE AUTO TRACE (NEGATIVE); MUCUS, URINE SMALL (NEGATIVE); NITRITE, URINE AUTO NEGATIVE (NEGATIVE); PROTEIN, URINE AUTO NEGATIVE (NEGATIVE); RBC, URINE AUTO 1 /HPF (0-3); SQUAMOUS EPITHELIAL CELL UR AU 0 /HPF (0-6); UROBILINOGEN, URINE AUTO 0.2 mg/dL (0.0-2.0); WBC, URINE AUTO 2 /HPF (0-3)
[2018-04-11 14:21] LABS: ANION GAP 6 MEQ/L (8-16); BLOOD UREA NITROGEN 9 MG/DL (7-18); CALCIUM LEVEL 8.6 MG/DL (8.5-10.1); CARBON DIOXIDE LEVEL 30 MEQ/L (21-32); CHLORIDE LEVEL 107 MEQ/L (98-107); CREATININE FOR GFR 1.05 MG/DL (0.70-1.30); GLOMERULAR FILTRATION RATE > 60.0 (>60); GLUCOSE, FASTING 96 MG/DL (70-100); POTASSIUM SERUM 3.9 MEQ/L (3.5-5.1); SODIUM LEVEL 143 MEQ/L (136-145)
[2018-04-11] MEDS: cloNIDine 0.2 MG TAB PO (14:51)
== END 2018-04-11 15:05 | disposition home or self-care (01) ==
LOC: M ED 12:53
DX: I10 Essential (primary) hypertension (principal); Z76.0 Encounter for issue of repeat prescription; F90.9 Attention-deficit hyperactivity disorder, unspecified type; F41.9 Anxiety disorder, unspecified; F32.9 Major depressive disorder, single episode, unspecified; Z79.899 Other long term (current) drug therapy
CPT/HCPCS: 93005

== ENCOUNTER 2018-05-12 15:27 | Emergency (ER) | payer OTHER ==
[2018-05-12] MEDS: cloNIDine 0.1 MG TAB PO (15:53)
== END 2018-05-12 15:57 | disposition home or self-care (01) ==
LOC: M ED 15:27
DX: Z76.0 Encounter for issue of repeat prescription (principal); I10 Essential (primary) hypertension; Z79.899 Other long term (current) drug therapy
CPT/HCPCS: 99283

== ENCOUNTER 2018-05-23 11:11 | Emergency (ER) | payer OTHER | END 2018-05-23 12:08 | disposition home or self-care (01) | LOC: M ED 11:11 | DX: I10 Essential (primary) hypertension (principal); F41.9 Anxiety disorder, unspecified | CPT/HCPCS: 99282 ==

== ENCOUNTER 2018-05-29 12:04 | Emergency (ER) | payer OTHER | END 2018-05-29 13:36 | disposition home or self-care (01) | LOC: M ED 12:04 | DX: Z76.0 Encounter for issue of repeat prescription (principal); I10 Essential (primary) hypertension; F90.9 Attention-deficit hyperactivity disorder, unspecified type; Z79.899 Other long term (current) drug therapy | CPT/HCPCS: 99283 ==

== ENCOUNTER 2018-08-07 13:16 | Emergency (ER) | payer OTHER ==
[~2018-08-07] VITALS: Ht 175.3 cm; Wt 88.6 kg
[2018-08-07 13:16] VITALS: BP 133/85
[~2018-08-07 13:16] MED LIST changes: +ADDE1TAB14 PO; +ADDE30CA3; +AMPHET/DEXTR; +AMPHET/DEXTR PO; +CLON0.3T PO; +DOXE50CA; +GABA-1171 PO; +GABA-845 PO; +HYDR50CA2 PO; +HYDR50TA70; +LORA1TAB12; +MELO7.5T7 PO; +MIRT15TA3; +OXYCOD/APAP; +REME15TA; +TIZA4CAP PO; -TIZA4CAP3 PO
[2018-08-07] MEDS ORDERED: OMEP40CA2 (13:24)
[2018-08-07] MEDS ORDERED: MELO15TA28 (13:24)
[2018-08-07] MEDS ORDERED: LISI10TA4 (13:24)
== END 2018-08-07 13:53 | disposition home or self-care (01) ==
LOC: M ED 13:16
DX: I10 Essential (primary) hypertension (principal); F41.9 Anxiety disorder, unspecified; F33.9 Major depressive disorder, recurrent, unspecified; Z79.899 Other long term (current) drug therapy

== ENCOUNTER 2018-10-03 13:54 | Emergency (ER) | payer OTHER ==
[~2018-10-03] VITALS: Ht 175.3 cm; Wt 85.3 kg
[~2018-10-03 13:54] MED LIST changes: +LISI10TA4; +MELO15TA28; +OMEP40CA2
[2018-10-03] MEDS ORDERED: CLON0.2T (14:09)
[2018-10-03] MEDS ORDERED: LISI40TA PO (14:36)
[2018-10-03] MEDS ORDERED: CLON0.2T PO (14:36)
[2018-10-03 14:41] VITALS: BP 125/75
[2018-10-03] MEDS ORDERED: cloNIDine 0.2 MG TAB PO ONE (14:45)
[2018-10-03 14:59] VITALS: BP 142/67
== END 2018-10-03 14:59 | disposition home or self-care (01) ==
LOC: M ED 13:54
DX: Z76.0 Encounter for issue of repeat prescription (principal); I10 Essential (primary) hypertension; F90.9 Attention-deficit hyperactivity disorder, unspecified type; Z79.899 Other long term (current) drug therapy

== ENCOUNTER 2018-11-14 21:16 | Emergency (ER) | payer OTHER ==
[~2018-11-14] VITALS: Ht 175.3 cm; Wt 83.6 kg
[~2018-11-14 21:16] MED LIST changes: +CLON0.2T; +CLON0.2T PO; +LISI40TA PO
[2018-11-14 21:17] VITALS: BP 177/97
[2018-11-14] MEDS ORDERED: AMLO5TAB6 PO (21:21)
[2018-11-14] MEDS ORDERED: cloNIDine 0.1 MG TAB PO ONE (23:30)
[2018-11-14] MEDS ORDERED: CLONI1TA PO (23:41)
[2018-11-14 23:52] VITALS: BP 148/82
== END 2018-11-14 23:55 | disposition home or self-care (01) ==
LOC: M ED 21:16
DX: I10 Essential (primary) hypertension (principal); Z76.0 Encounter for issue of repeat prescription; F90.9 Attention-deficit hyperactivity disorder, unspecified type; F90.0 Attention-deficit hyperactivity disorder, predominantly inattentive type; F41.9 Anxiety disorder, unspecified; F32.9 Major depressive disorder, single episode, unspecified; Z79.899 Other long term (current) drug therapy

== ENCOUNTER 2018-12-29 08:26 | Emergency (ER) | payer OTHER ==
[~2018-12-29] VITALS: Ht 175.3 cm; Wt 90.9 kg
[~2018-12-29 08:26] MED LIST changes: +AMLO5TAB6 PO; +CLONI1TA PO
[2018-12-29] MEDS ORDERED: BUSP10TA (08:35)
[2018-12-29] MEDS ORDERED: TRAZ300T2 (08:35)
[2018-12-29] MEDS ORDERED: LISI40TA (08:35)
[2018-12-29] MEDS ORDERED: AMPH30CA (08:35)
[2018-12-29] MEDS ORDERED: CLON-412 (08:35)
[2018-12-29] MEDS ORDERED: CLONI1TA PO (10:31)
[2018-12-29 10:38] VITALS: BP 121/65
== END 2018-12-29 10:39 | disposition home or self-care (01) ==
LOC: M ED 08:26
DX: Z76.0 Encounter for issue of repeat prescription (principal); F32.9 Major depressive disorder, single episode, unspecified; F41.1 Generalized anxiety disorder; F90.9 Attention-deficit hyperactivity disorder, unspecified type; I10 Essential (primary) hypertension; F12.90 Cannabis use, unspecified, uncomplicated

== ENCOUNTER 2019-01-08 10:19 | Emergency (ER) | payer OTHER ==
[~2019-01-08] VITALS: Ht 175.3 cm; Wt 86.4 kg
[2019-01-08 10:19] VITALS: BP 138/76
[~2019-01-08 10:19] MED LIST changes: +AMPH1CAP5; +BUSP10TA; +CLON-412; +LISI40TA; -LORA1TAB12; +LORA1TAB4; -OMEP40CA2; +OMEP40CA97; +TRAZ300T2
== END 2019-01-08 10:25 | disposition left against medical advice (07) ==
LOC: M ED 10:19
DX: Z76.0 Encounter for issue of repeat prescription (principal); Z53.21 Procedure and treatment not carried out due to patient leaving prior to being seen by health care provider

== ENCOUNTER 2020-01-21 00:37 | Day surgery (SDC) | payer OTHER ==
[~2020-01-21] VITALS: Ht 175.3 cm; Wt 86.1 kg
[2020-01-21] MEDS ORDERED: NS 1,000 ML IV SCH (04:15)
[2020-01-21 04:56] LABS: HEMATOCRIT 40.1 % (42.0-52.0); MEAN CORPUSCULAR HEMOGLOBIN 31.6 pg (27.0-33.0); MEAN CORPUSCULAR HGB CONC 34.9 g/dl (32.0-36.5); MEAN CORPUSCULAR VOLUME 90.5 fl (80.0-96.0); PLATELET COUNT, AUTOMATED 249 10^3/uL (150-450); RED BLOOD COUNT 4.43 10^6/uL (4.30-6.10); WHITE BLOOD COUNT 8.6 10^3/uL (4.0-10.0)
[2020-01-21 05:14] LABS: CALCIUM LEVEL 8.5 MG/DL (8.5-10.1); CREATININE FOR GFR 2.22 MG/DL (0.70-1.30); GLOMERULAR FILTRATION RATE 33.4 (>56); POTASSIUM SERUM 3.6 MEQ/L (3.5-5.1)
--- NOTE | 2020-01-21 08:40 | REP ---
REASON: Rule out metallic foreign body. There is a linear metallic foreign body jus proximal or the level of the gastroesophageal junction. This measures approximately 2 cm in length and less than 1 mm in width and is consistent with the patient's history of ingesting a nail. The intestinal gas pattern is nonspecific. IMPRESSION: Findings as described above. Electronically Signed by Keenan Mesa DO 01/21/2020 09:18 A
[2020-01-21] MEDS ORDERED: ROCURONIUM BROMIDE 50 MG/5 ML VIAL As Ordered ONE (09:04)
[2020-01-21] MEDS ORDERED: LIDOCAINE 2% 100MG/5ML SDV (FOR ANES.) As Ordered ONE (09:04)
[2020-01-21] MEDS ORDERED: propofoL 200 MG/20 ML VIAL As Ordered ONE (09:04)
[2020-01-21] MEDS ORDERED: SUCCINYLCHOLINE 100 MG/5 ML SYRINGE (J0330) As Ordered ONE (09:04)
[2020-01-21] MEDS ORDERED: ONDANSETRON 4MG/2ML VIAL As Ordered ONE (09:04)
[2020-01-21] MEDS ORDERED: MIDAZOLAM INJ 2MG/2ML VIAL (J2250 PER 1MG) As Ordered ONE (09:05)
[2020-01-21] MEDS ORDERED: fentaNYL 100 MCG/2 ML INJECTION (J3010) As Ordered ONE ×2 (09:05→11:12)
[2020-01-21] MEDS ORDERED: dexameTHASONE 4 MG/ML 1ML VIAL (J1100 PER 1MG) As Ordered ONE (09:06)
--- NOTE | 2020-01-21 10:44 | ECGEPIP ---
[facility] - ED Test Date: 2020-01-21 Pat Name: TEE MENDIOLA Department: Room: - Gender: Male Recovery Assistant: MR : 1970 Requested By: Nolan Walsh Order Number: [id number] Reading MD: Althea Flody Measurements Intervals [place] Rate: 83 P: 67 [place]: 151 QRS: 63 QRSD: 93 T: 55 QT: 370 QTc: 436 Interpretive Statements SINUS RHYTHM INCREASED RATE 04/11/18 Electronically Signed on 01-21-2020 10:43:51 EDT by Althea Floyd
[2020-01-21] MEDS ORDERED: LR 1,000 ML IV SCH (11:15)
[2020-01-21] MEDS ORDERED: ONDANSETRON 4MG/2ML VIAL IV PRN (11:15)
[2020-01-21] MEDS ORDERED: METOCLOPRAMIDE INJ 10MG/2ML VIAL (J2765 PER 1) IV PRN (11:15)
[2020-01-21] MEDS ORDERED: fentaNYL 100 MCG/2 ML INJECTION (J3010) IV PRN (11:15)
--- NOTE | 2020-01-21 11:18 | ROOR ---
Patient Name: Bartolo Stanley Procedure Date: 01/21/2020 9:13 AM Date of : 1970 Age: 49 Room: Main OR Gender: Male Note Status: Finalized Procedure: Upper GI endoscopy Indications: Foreign body in the esophagus Providers: Douglas Yanes MD Referring MD: Jayden Leach Jr, MD Requesting Provider: Medicines: Monitored Anesthesia Care Complications: No immediate complications. Estimated blood loss: None. Procedure: Pre-Anesthesia Assessment: - Prior to the procedure, a History and Physical was performed, and patient medications and allergies were reviewed. The patient is competent. The risks and benefits of the procedure and the sedation options and risks were discussed with the patient. All questions were answered and informed consent was obtained. Patient identification and proposed procedure were verified by the physician, the nurse and the anesthesiologist in the procedure room. Mental Status Examination: alert and oriented. Airway Examination: normal oropharyngeal airway and neck mobility. Respiratory Examination: clear to auscultation. CV Examination: normal. Prophylactic Antibiotics: The patient does not require prophylactic antibiotics. Prior Anticoagulants: The patient has taken no previous anticoagulant or antiplatelet agents. ASA Grade Assessment: II - A patient with mild systemic disease. After reviewing the risks and benefits, the patient was deemed in satisfactory condition to undergo the procedure. The anesthesia plan was to use monitored anesthesia care (MAC). Immediately prior to administration of medications, the patient was re-assessed for adequacy to receive sedatives. The heart rate, respiratory rate, oxygen saturations, blood pressure, adequacy of pulmonary ventilation, and response to care were monitored throughout the procedure. The physical status of the patient was re-assessed after the procedure. The Endoscope was introduced through the mouth, and advanced to the second part of duodenum. The upper GI endoscopy was accomplished without difficulty. The patient tolerated the procedure well. Findings: The ingested nail, partially piercing the mucosa (without perforation) were found in the distal esophagus. Removal was accomplished with a rat-toothed forceps and snare. LA Grade A (one or more mucosal breaks less than 5 mm, not extending between tops of 2 mucosal folds) esophagitis with no bleeding was found in the distal esophagus. No gross lesions were noted in the entire examined stomach. The duodenal bulb and second portion of the duodenum were normal. Impression: - The ingested nail, partially piercing the mucosa (without perforation) were found in the esophagus. Removal was successful. - LA Grade A reflux esophagitis. - No gross lesions in the stomach. - Normal duodenal bulb and second portion of the duodenum. Recommendation: - Patient has a contact number available for emergencies. The signs and symptoms of potential delayed complications were discussed with the patient. Return to normal activities tomorrow. Written discharge instructions were provided to the patient. - Clear liquid diet for 1 day, then advance as tolerated to resume previous diet. - Continue present medications. - Augmentin (amoxicillin/clavulanate) 875 mg PO q 8 hr for 5 days. - Obtain tetanus booster at your PCP clinic (depending on the vaccination history). - Observe patient in PACU for 6 hours for observation. - Telephone GI clinic if symptomatic. - Return to primary care physician. Douglas Yanes MD Douglas Yanes MD 01/21/2020 11:17:39 AM Electronically signed by Douglas Yanes MD Number of Addenda: 0 Note Initiated On: 01/21/2020 9:13 AM Estimated Blood Loss: Estimated blood loss: none.
--- NOTE | 2020-01-21 11:45 | REP ---
REASON: Followup. COMPARISON: Earlier today. The metallic radiodensity seen is completely unchanged from the prior exam and is again located at or just proximal to the level of the gastroesophageal junction. It is consistent with the given history of "swallowed a nail". There are no changes when compared to the prior exam. Electronically Signed by Keenan Mesa DO 01/21/2020 03:55 P
[2020-01-21] MEDS ORDERED: AUGMENTIN 875 MG TAB PO ONE (12:15)
[2020-01-21 13:10] VITALS: BP 129/72
[2020-02-01] MEDS ORDERED: AMLO5TAB6 PO (23:23)
== END 2020-01-21 13:29 | disposition home or self-care (01) ==
LOC: M ED 00:37 → M SDC 00:38
PROVIDERS: ATTEND Internal Medicine Gastroenterology
DX: T18.198A Other foreign object in esophagus causing other injury, initial encounter (principal); K21.0 Gastro-esophageal reflux disease with esophagitis; I10 Essential (primary) hypertension; Z79.899 Other long term (current) drug therapy; F41.9 Anxiety disorder, unspecified; F32.9 Major depressive disorder, single episode, unspecified; M10.9 Gout, unspecified
CPT/HCPCS: 43247; 74018; 76010; 80048; 85027; 88300; 93005; 96360; 96361; 99285; J0330; J1100; J2250; J2405; J3010; U0002

== ENCOUNTER 2020-02-01 19:42 | Inpatient (IN) | payer OTHER ==
[~2020-02-01] VITALS: Ht 175.3 cm; Wt 88.6 kg
[~2020-02-01 19:42] MED LIST changes: +AMLO1TAB24 PO; -AMLO5TAB6 PO
[2020-02-01] MEDS ORDERED: NS 2,590 ML in IV 1 EA IV ONE (20:30)
[2020-02-01 20:50] LABS: BASO % 0.4 % (0.0-1.0); EOS % 0.2 % (0.0-3.0); HEMATOCRIT 42.9 % (42.0-52.0); LYMPH # 1.1 10^3/uL (1.5-5.0); LYMPH % 12.8 % (24.0-44.0); MEAN CORPUSCULAR HEMOGLOBIN 31.3 pg (27.0-33.0); MEAN CORPUSCULAR VOLUME 89.4 fl (80.0-96.0); MONO # 0.8 10^3/uL (0.0-0.8); MONO % 8.8 % (0.0-5.0); NEUTROPHILS # 6.6 10^3/uL (1.5-8.5); NEUTROPHILS % 77.6 % (36.0-66.0); PLATELET COUNT, AUTOMATED 289 10^3/uL (150-450); WHITE BLOOD COUNT 8.5 10^3/uL (4.0-10.0)
--- NOTE | 2020-02-01 21:00 | REPVR ---
PROCEDURE INFORMATION: Exam: CT Cervical Spine Without Contrast Exam date and time: 02/01/2020 8:43 PM Age: 49 years old Clinical indication: Other: Syncope TECHNIQUE: Imaging protocol: Computed tomography images of the cervical spine without contrast. Radiation optimization: All CT scans at this facility use at least one of these dose optimization techniques: automated exposure control; mA and/or kV adjustment per patient size (includes targeted exams where dose is matched to clinical indication); or iterative reconstruction. COMPARISON: Thyroid, ST head+neck US 02/20/2017 2:36 PM FINDINGS: Vertebrae: No acute fracture. Normal alignment. C2-C3: Slight interspace narrowing with early degenerative change and no spinal or foraminal stenosis. C3-C4: Mild interspace narrowing with minimal degenerative changes of uncovertebral joints and no significant spinal or foraminal stenosis. C4-C5: Mild interspace narrowing with minimal posterior protrusion and paracentral osteophytes and no significant spinal or foraminal stenosis. C5-C6: Moderate interspace narrowing with mild posterior osteophytes and bilateral degenerative changes. There is low normal size of the spinal canal and mild left neural foraminal stenosis. C6-C7: Moderate interspace narrowing with minimal paracentral posterior osteophytes and degenerative changes bilaterally. There is mild left neural foraminal stenosis. C7-T1: Slight anterolisthesis with no significant spinal or foraminal stenosis. Soft tissues: Unremarkable. Lungs: Lung apices are normal. IMPRESSION: 1. Multilevel degenerative changes with mild left neural foraminal stenosis at C5-C6 and C6-C7. 2. No acute fracture or subluxation. Electronically signed by: Flaco Arias On 02/01/2020 21:00:22 PM
[2020-02-01 21:06] LABS: INR 1.06; PROTHROMBIN TIME 13.5 SECONDS (11.8-14.0)
--- NOTE | 2020-02-01 21:06 | REPVR ---
PROCEDURE INFORMATION: Exam: CT Head Without Contrast Exam date and time: 02/01/2020 8:43 PM Age: 49 years old Clinical indication: Syncope and collapse TECHNIQUE: Imaging protocol: Computed tomography of the head without contrast. Radiation optimization: All CT scans at this facility use at least one of these dose optimization techniques: automated exposure control; mA and/or kV adjustment per patient size (includes targeted exams where dose is matched to clinical indication); or iterative reconstruction. COMPARISON: CT Head without contrast 02/20/2017 9:56 AM FINDINGS: Brain: Normal. No hemorrhage. Unremarkable white matter. No mass effect. Ventricles: Normal. No ventriculomegaly. Bones/joints: Unremarkable. No acute fracture. Sinuses: Visualized sinuses are unremarkable. No fluid levels. Mastoid air cells: Visualized mastoid air cells are well aerated. Soft tissues: Unremarkable. IMPRESSION: Negative noncontrast head CT without change from 02/20/2017. Electronically signed by: Flaco Arias On 02/01/2020 21:05:51 PM
[2020-02-01 21:07] LABS: PARTIAL THROMBOPLASTIN TIME 27.2 SECONDS (25.0-38.4)
[2020-02-01 21:27] LABS: ALBUMIN 3.9 GM/DL (3.2-5.2); ALT/SGPT 37 U/L (12-78); AMYLASE 45 U/L (25-115); BILIRUBIN,DIRECT 0.1 MG/DL (0.0-0.2); BILIRUBIN,TOTAL 0.5 MG/DL (0.2-1.0); BLOOD UREA NITROGEN 48 MG/DL (7-18); C REACTIVE PROTEIN QUANTITATIV 0.99 MG/DL (0.00-0.30); CALCIUM LEVEL 8.5 MG/DL (8.5-10.1); CARBON DIOXIDE LEVEL 25 MEQ/L (21-32); CHLORIDE LEVEL 96 MEQ/L (98-107); CK-MB VALUE MASS 9.1 NG/ML (<3.6); CPK CREATINE PHOSPHOKINASE 433 U/L (39-308); CREATININE FOR GFR 7.58 MG/DL (0.70-1.30); GLOMERULAR FILTRATION RATE 8.1 (>56); GLUCOSE, FASTING 138 MG/DL (70-100); POTASSIUM SERUM 3.5 MEQ/L (3.5-5.1); SODIUM LEVEL 136 MEQ/L (136-145); TOTAL PROTEIN 7.3 GM/DL (6.4-8.2); TROPONIN I < 0.02 NG/ML (< 0.10)
[2020-02-01] MEDS ORDERED: cefTRIAXone SOD 2 GM in D5W MINI-BAG PLUS 50 ML IV ONE (21:45)
[2020-02-01] MEDS ORDERED: NS 500 ML IV ONE (22:15)
[2020-02-01] MEDS ORDERED: TRAZ1TAB14 PO (23:23)
[2020-02-01] MEDS ORDERED: LISI40TA PO (23:23)
[2020-02-01] MEDS ORDERED: ADDE30CA3 PO (23:23)
[2020-02-01] MEDS ORDERED: PROAAER10 INH (23:23)
[2020-02-01] MEDS ORDERED: ADDE30TA PO (23:23)
[2020-02-01] MEDS ORDERED: AMLO1TAB24 PO (23:23)
[2020-02-01] MEDS ORDERED: HYDR-3363 PO (23:23)
[2020-02-01] MEDS: NS 1,000 ML IV SCH (23:37)
[2020-02-01] MEDS ORDERED: ALBUTEROL 90 MCG/ACT 8GM HFA INHALER INH PRN (23:45)
[2020-02-01] MEDS ORDERED: hydrOXYzine 25 MG TAB PO PRN (23:45)
[2020-02-02] VITALS (12 sets, daily range): BP systolic 84–124; BP diastolic 48–68
--- NOTE | 2020-02-02 00:35 | REPVR ---
PROCEDURE INFORMATION: Exam: US Retroperitoneal Limited, Kidneys Exam date and time: 02/01/2020 12:26 AM Age: 49 years old Clinical indication: Abnormal findings; Abnormal lab test; Abnormal kidney function lab tests; Additional info: Adrian TECHNIQUE: Imaging protocol: Real-time ultrasound of the retroperitoneum with image documentation. Examination was focused on the kidneys. COMPARISON: No relevant prior studies available. FINDINGS: Right kidney: The right kidney measures 9.9 cm in its cephalocaudad dimension and 5.1 x 6.1 cm in diameter. No mass, cyst or hydronephrosis. Right renal parenchyma is hyperechoic. Left kidney: The left kidney measures 11.9 cm in its cephalocaudad dimension and 5.6 x 4.7 cm in diameter. No mass, cyst or hydronephrosis. Left renal parenchyma is hyperechoic. Bladder: The urinary bladder is unremarkable. IMPRESSION: 1. Hyperechoic renal parenchyma bilaterally consistent with medical renal disease. 2. Otherwise negative renal sonogram. No hydronephrosis. Electronically signed by: Flaco Arias On 02/02/2020 00:34:40 AM
--- NOTE | 2020-02-02 00:46 | HPEPDOC ---
General Date of Admission Feb 01, 2020 at 23:37 Date of Service: Feb 01, 2020 Attending Physician: MANJIT ROMERO MD Chief Complaint The patient is a 49-year-old male admitted with a reason for visit of Acute Renal Failure, Syncope. Source: Patient, RN/MD Exam Limitations: No limitations Timing/Duration: 24 hours Severity: Severe Associated Symptoms: Syncope History of Present Illness 49 yo M with a history of HTN, ADD, panic disorder, DDD, prior [facility] admission for psychosis and possible CKD per last labs in EMR with recent Cr of 2.2, who presented to the ED reporting acute general illness with witnessed syncope at home today in the setting of recent poor for 3-4 days with low fluid intake except a few drinks of gatorade. In the ED, his CT head and C-spine were negative for acute traumatic injury with C-spine noted miltilevel degenerative changes with mild foraminal stenosis of C5-C6 and C6-C7. Meanwhile Cr was 7.58 with a BUN of 48, na 136, K 3.5, na 8.5, hgb 15, platelets 289, CK 488, LFTs wnl, TSH 1.16, normal lactate, EKG without ST changes and NSR and negative troponin. He was hypotensive to SBP low 80s and was given aggressive fluids to a total 3L, empiric ceftriaxone after BCx were drawn and nephrology was called by Dr. You and Dr. Arredondo recommended continued aggressive hydration and he is now being admitted to the ICU for severe KIMANI and associated hypotension without evidence of ongoing infection. Home Medications Scheduled Amlodipine Besylate (Amlodipine Besylate) 5 Mg Tablet, 5 MG PO DAILY, (Reported) Dextroamphetamine/Amphetamine (Adderall Xr 30 mg Capsule) 30 Mg Cap.er.24h, 1 CAP PO DAILY, (Reported) Dextroamphetamine/Amphetamine (Adderall 30 mg Tablet) 30 Mg Tablet, 30 MG PO DAILY, (Reported) TAKES IN AFTERNOON BEFORE 1600 Lisinopril (Lisinopril) 40 Mg Tablet, 40 MG PO DAILY, (Reported) Trazodone HCl (Trazodone HCl) 150 Mg Tablet, 300 MG PO QHS, (Reported) Scheduled PRN Albuterol Sulfate (Proair Hfa) 8.5 Gm Hfa.aer.ad, 2 PUFF INH Q4H PRN for SHORTNESS OF BREATH, (Reported) Hydroxyzine HCl (Hydroxyzine HCl) 25 Mg Tablet, 25 MG PO QID PRN for ANXIETY, (Reported) Allergies Coded Allergies: No Known Allergies (Unverified , 02/01/20) Past Medical History Medical History HTN ADD Depression Prior admission to [facility] for psychosis Degenerative disc disease (lumbar) Nicotine addiction, vapes Panic disorder CKD with last known Cr of 2.2 Surgical History Pilonidal cyst Right middle finger Family History Mother - CVA. Father - dementia 1 sibling brother who is well Social History * Smoker: other (vapes) Alcohol: Denies Drugs: denies Recent Travel/Sick Contacts: Denies: Recent travel, Recent sick contacts Psychosocial History: Depression . Vapes. no alcohol, no illicit drug use. A-FIB/CHADSVASC A-FIB History Current/History of A-Fib/PAF?: No Current PO Anticoag Therapy: No Age/Risk Factor Scoring CHADSVASC: CHADSVASC Response (Comments) Value Age Risk Factor Age < 65 years old 0 Gender Risk Factor Male 0 Hx of CHF No 0 Hx of HTN Yes 1 Hx of Stroke/TIA/or VTE No 0 Hx of Diabetes No 0 Hx of Vascular Disease No 0 Total 1 Treatment Treatment ordered: NONE Reason Anticoagulant not given: Not indicated/[id number] Review of Systems Constitutional: Reports: Other (poor appetite with poor PO); Denies: Chills, Fever, Night Sweats Eyes: Denies: Pain, Vision change ENT: Denies: Head Aches, Ear Pain, Dysphagia Skin: Denies: Rash, Lesions, Breakdown Pulmonary: Denies: Dyspnea, Cough Cardiovascular: Denies: Chest Pain, Palpitations, Orthopnea, Paroxysmal Noc. Dyspnea, Lt Headedness Gastrointestinal: Denies: Nausea, Vomiting, Abdominal Pain, Diarrhea Genitourinary: Reports: Frequency (decreased frequency today); Denies: Hematuria, Retention (no prior history of) Hematologic: Denies: Bruising, Bleeding Excessively Endocrine: Denies: Polydipsia, Polyphagia, Polyuria, Heat Intolerance, Cold Intolerance, Other Endocrine Sx Musculoskeletal: Reports: Back Pain (has chronic back pain); Denies: Neck Pain, Joint Pain, Muscle Pain, Spasms Neurological: Denies: Weakness, Numbness, Change in speech, Confusion Psych: Reports: Mood Normal; Denies: Thoughts of Self Harm, Anger, Thoughts of Harming Other Physical Examination General Exam: Positive: Alert, No Acute Distress Eye Exam: Positive: PERRLA, Conjunctiva & lids normal, EOMI; Negative: Sclera icteric ENT Exam: Positive: Atraumatic, Pharynx Normal, Other ENT (edentulous); Negative: Mucous membr. moist/pink (dry MM) Neck Exam: Positive: Supple; Negative: JVD, thyromegaly Chest Exam: Positive: Clear to auscultation, Normal air movement Heart Exam: Positive: Rate Normal, Regular Rhythm, Normal S1, Normal S2; Negative: Murmurs, Rubs Telemetry: Positive: No significant arrhythmia Abdomen Exam: Positive: Normal bowel sounds, Soft; Negative: Tenderness, Hepatospenomegaly Extremity Exam: Positive: Normal pulses; Negative: Clubbing, Cyanosis, Edema Skin Exam: Positive: Nl turgor and temperature; Negative: Breakdown, Lesion Neuro Exam: Positive: Normal Speech, Strength at 5/5 X4 ext, Normal Tone, Cranial Nerves 3-12 NL Psych Exam: Positive: Mental status NL, Oriented x 3 (however is a very poor historian) Vital Signs Vital Signs Date Time Temp Pulse Resp B/P (MAP) Pulse Ox O2 Delivery O2 Flow Rate FiO2 02/01/20 23:30 60 18 90/50 (63) 97 Room Air 02/01/20 19:58 98.4 Laboratory Data Labs 24H Laboratory Tests 2 02/01/20 20:31: Immature Granulocyte % (Auto) 0.2, Neutrophils (%) (Auto) 77.6H, Lymphocytes (%) (Auto) 12.8L, Monocytes (%) (Auto) 8.8H, Eosinophils (%) (Auto) 0.2, Basophils (%) (Auto) 0.4, Neutrophils # (Auto) 6.6, Lymphocytes # (Auto) 1.1L, Monocytes # (Auto) 0.8, Eosinophils # (Auto) 0.0, Basophils # (Auto) 0.0, Nucleated Red Blood Cells % (auto) 0.0, Prothrombin Time 13.5, Prothromb Time International Ratio 1.06, Activated Partial Thromboplast Time 27.2, Anion Gap 15, Glomerular Filtration Rate 8.1L, Lactic Acid Level 2.0, Calcium Level 8.5, Total Bilirubin 0.5, Direct Bilirubin 0.1, Aspartate Amino Transf (AST/SGOT) 25, Alanine Aminotransferase (ALT/SGPT) 37, Alkaline Phosphatase 104, Total Creatine Kinase 433H, Creatine Kinase MB 9.1H, Creatine Kinase MB Relative Index 2.10, Troponin I < 0.02, C-Reactive Protein, Quantitative 0.99H, Total Protein 7.3, Albumin 3.9, Albumin/Globulin Ratio 1.1, Amylase Level 45, Thyroid Stimulating Hormone (TSH) 1.160 02/01/20 21:37: Bedside Glucose (Misc Panel) 125H CBC/BMP Laboratory Tests 02/01/20 20:31 Microbiology Microbiology 02/01/20 Blood Culture, Received Pending 02/01/20 Blood Culture, Received Pending Assessment/Plan 49 yo M with a history of HTN, ADD, panic disorder, DDD, prior [facility] admission for psychosis and possible CKD per last labs in EMR with recent Cr of 2.2, who presented to the ED reporting acute general illness with witnessed syncope at home today in the setting of recent poor for 3-4 days with low fluid intake except a few drinks of gatorade. In the ED, his CT head and C-spine were negative for acute traumatic injury with C-spine noted miltilevel degenerative changes with mild foraminal stenosis of C5-C6 and C6-C7. Meanwhile Cr was 7.58 with a BUN of 48, na 136, K 3.5, na 8.5, hgb 15, platelets 289, CK 488, LFTs wnl, TSH 1.16, normal lactate, EKG without ST changes and NSR and negative tro ponin. He was hypotensive to SBP low 80s and was given aggressive fluids to a total 3L, empiric ceftriaxone after BCx were drawn and nephrology was called by Dr. You and Dr. Arredondo recommended continued aggressive hydration and he is now being admitted to the ICU for severe KIMANI and associated hypotension without evidence of ongoing infection. Plan: KIMANI on CKD: In the setting of 3-4 days of poor to no PO and low liquid intake. -s/p 3L NS in the ED -continue NS at 125cc/hr -renal US -[place]ell for critical monitoring -nephrology consult. Dr. Arredondo was made aware by ED and recommended hydration for now with repeat AM labs -Lactate wnl, CK unimpressive -hold home amlodipine and lisinopril in the setting of hypotension and renal injury -strict I/Os -Daily weights -urine Na and Cr for FeNa -UA -trend BMP Syncope with noted hypotension: most likely 2/2 severe dehydration -s/p 3L NS in ED, continue 125cc/hr -telemetry -f/u BCx, UA -Orthostatic vitals Q8H x 3 times -EKG was non ischemic and trop negative -TTE in the morning -CT head and C-spine without acute pathology with noted multilevel degenerative changes with mild L neural foraminal stenosis at C5-C6 and C6-C7. Hypotension: Likely hypovolemic from dehydration -will continue aggressive hydration with strict I/O monitoring -serial orthostatic vitals -unlikely 2/2 infection without evidence at this time, will defer abx for now without leukocytosis, normal lactate and nonfocal examination. For now, already received empiric ceftriaxone which should cover throughout the night. -f/u BCx and UA History of HTN: -hold home meds as noted above, both CCB and ACEi DDD: -PRN tylenol for pain Panic disorder: -continue home PRN hydroxyzine Insomnia: -continue home trazodone ADD: -will hold adderall for now, to restart in the morning if telemetry without tachyarrhythmias Nicotine addiction: -will offer nicotine patch DVT ppx: heparin SQ Q8H Dispo: ICU, inpatient Plan / VTE VTE Prophylaxis Ordered?: Yes MANJIT ROMERO MD Feb 02, 2020 00:45
[2020-02-02] MEDS: HEPARIN SOD (PORCINE) 5000UNITS/ML 1ML VIAL/SYRINGE SC SCH ×3 (06:00→20:55)
[2020-02-02] MEDS: traZODone 100 MG TAB PO SCH ×2 (06:27→20:55)
[2020-02-02 07:21] LABS: HEMATOCRIT 40.4 % (42.0-52.0); HEMOGLOBIN 13.8 g/dl (13.5-17.5); MEAN CORPUSCULAR HEMOGLOBIN 31.2 pg (27.0-33.0); MEAN CORPUSCULAR HGB CONC 34.2 g/dl (32.0-36.5); MEAN CORPUSCULAR VOLUME 91.4 fl (80.0-96.0); PLATELET COUNT, AUTOMATED 241 10^3/uL (150-450); RED BLOOD COUNT 4.42 10^6/uL (4.30-6.10); WHITE BLOOD COUNT 7.1 10^3/uL (4.0-10.0)
[2020-02-02 07:35] LABS: CALCIUM LEVEL 7.7 MG/DL (8.5-10.1); CREATININE FOR GFR 5.08 MG/DL (0.70-1.30); GLOMERULAR FILTRATION RATE 12.9 (>56); MAGNESIUM LEVEL 2.6 MG/DL (1.8-2.4); PHOSPHORUS LEVEL 5.3 MG/DL (2.5-4.9); POTASSIUM SERUM 3.3 MEQ/L (3.5-5.1)
--- NOTE | 2020-02-02 08:23 | REP ---
Clinical: Sepsis/shock . Comparison: None . Findings: The mediastinum and cardiac silhouette are stable and within normal limits for portable technique. The lung jamison are clear without acute consolidation, effusion, or pneumothorax. Skeletal structures are intact. Impression: No acute cardiopulmonary process appreciated. Electronically Signed by David Palomares MD 02/02/2020 08:15 A
[2020-02-02] MEDS: AMPHETAMINE/DEXTROAMPHETAMINE 5 MG *ER* CAPSULE (ADDERALL XR) PO SCH (09:00)
[2020-02-02] MEDS: NS 1,000 ML IV SCH ×2 (09:44→17:51)
--- NOTE | 2020-02-02 10:44 | ECGEPIP ---
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
[2020-02-02] MEDS ORDERED: POTASSIUM CHLORIDE 10 MEQ SR TABLET PO ONE (10:45)
[2020-02-02] MEDS: TAMSULOSIN 0.4 MG CAP PO SCH (11:25)
[2020-02-02 11:56] LABS: SODIUM,RANDOM URINE 58 MEQ/L
[2020-02-02] MEDS ORDERED: NICOTINE 14 MG/24 HR TRANSDERMAL TD PRN (12:00)
[2020-02-02] MEDS ORDERED: ADDERALL 5 MG TAB PO ONE (13:00)
--- NOTE | 2020-02-02 13:55 | CR ---
DATE OF CONSULTATION: 02/02/2020 REQUESTING PHYSICIAN: Dr. Vanessa Dangelo CONSULTING PHYSICIAN: Dr. Arredondo REASON FOR CONSULTATION: Management of acute renal failure. CHIEF COMPLAINT: Patient presented to the hospital yesterday with syncope. HISTORY OF PRESENT ILLNESS: Mr. Bartolo Stanley is a 49-year-old male with past medical history of hypertension, depression, history of chronic kidney disease, stage III, with a baseline creatinine of around 2.2 as per beginning of this month, attention deficit hyperactivity disorder. He takes amlodipine and lisinopril at home for hypertension. He was brought into the emergency room yesterday because of acute generalized weakness and he had syncope at home. He admitted that he was not drinking enough fluids and he was working outside. 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 However, on arrival with syncope and hypotension he was found to have acute renal failure as well with a creatinine of 7.5. He was admitted to intensive care unit (ICU). He was given intravenous (IV) fluid hydration. Nephrology service was called for further help in the management of this patient. I saw and evaluated the patient today morning at the bedside in the ICU. Patient is awake and alert. His blood pressures are getting better. He is not requiring any pressors. He reports that he is feeling much better today as compared with yesterday and he is urinating now. PAST MEDICAL HISTORY: Past medical history of hypertension, attention deficit hyperactivity disorder, depression, history of psychosis in the past, panic disorder, chronic kidney disease (CKD) III with baseline creatinine of 2.2. PAST SURGICAL HISTORY: Status post right middle finger surgery and pilonidal cyst surgery. ALLERGIES: NO KNOWN DRUG ALLERGIES. FAMILY HISTORY: No significant family history of end-stage renal disease requiring hemodialysis. SOCIAL HISTORY: Patient lives at home. He smokes marijuana regularly and he uses vaping. Denies any other illicit drug abuse, and he denies any alcohol abuse. REVIEW OF SYSTEMS: Constitutional: When he came in, he felt very weak and fatigued. Eyes: He denies any blurry vision, double vision. ENT: Denies any dysphagia, odynophagia. Cardiovascular: Denies any chest pain, palpitation. Respiratory: He denies any shortness of breath. Gastrointestinal (GI): He denies any nausea, vomiting. Genitourinary: He denies any dysuria, hematuria. Musculoskeletal: He reported muscle weakness when he came in. Skin: He denies any rashes or ulcers. Hematology/Oncology: He denies any easy bleeding or bruising. Central Nervous System (CONDITIONING YARD SUPERVISOR): He came in with syncope. All other review of systems is negative. PHYSICAL EXAMINATION: General: Patient is awake, alert, oriented times three, laying in bed. Vital Signs: Temperature is 98 degrees Fahrenheit, blood pressure 124/68, pulse is 82, respiratory rate of 17, saturating 100% on room air. Head/Neck Exam: Extraocular muscles intact. Pupils equally round and reactive to light. Mucous membranes are moist. Neck is supple. There is no jugular venous distention (JVD). Cardiovascular: S1, S2, regular rate. No edema of the bilateral lower extremities. Respiratory: Chest is clear to auscultation bilaterally. Bilateral equal air entry. No rales or rhonchi. Abdomen: Soft. Positive bowel sounds. Nontender. No organomegaly. Musculoskeletal: No clubbing or cyanosis. Pulses are 2+. CONDITIONING YARD SUPERVISOR: No focal deficit. Power is 5/5 in all extremities. LAB REVIEW: CBC showed WBC 7.1, hemoglobin 13.8, platelets of 141. INR is 1.06. Urinalysis is pending. BMP on arrival showed sodium 136, potassium 3.5, chloride 96, bicarbonate 25, BUN 48, creatinine 7.5. Lactic acid was 2. Repeat BMP today, sodium 137, potassium 3.3, chloride 106, bicarbonate 27, BUN 46, creatinine of 5, calcium 7.7, phosphorus is 5.3, magnesium 2.6, a.m. cortisol was 20.4. MICROBIOLOGY: All cultures are negative so far. IMAGING: A renal ultrasound was done, which showed hyperechoic renal parenchyma bilaterally consistent with medical renal disease. HOME MEDICATIONS: Patient's home medications include: - lisinopril 40 mg daily - amlodipine 5 mg by mouth daily - Adderall XR 30 mg by mouth daily - hydroxyurea 25 mg by mouth four times a day as needed - trazodone 300 mg at bedtime CURRENT INPATIENT MEDICATIONS: Patient's medications were all reviewed by myself. Inpatient medications include normal saline boluses that were given overnight and is now getting normal saline at 125 mL/h. He was given Rocephin 2 grams IV times one dose. He is back on his home dose of Adderall. He is on hydroxyzine as needed. He has a nicotine patch. He was given a dose of potassium chloride 20 mEq by mouth times one dose today, and he is on trazodone 300 mg at bedtime. I have started him on Flomax 0.4 mg by mouth daily. ASSESSMENT: 49-year-old male with history of hypertension, attention deficit disorder, panic disorder, chronic kidney disease, stage III admitted this time because of syncope and acute renal failure. PLAN: 1. Acute kidney injury superimposed on chronic kidney disease most likely is secondary to dehydration, volume depletion and use of amlodipine and lisinopril at home. He was adequately hydrated overnight. He is getting IV fluid hydration. Patient is making urine. Bedside bladder scan was done. He made 300 mL of urine and after that he still had 200 mL in the bladder. I have started him on Flomax 0.4 mg by mouth . Daily. 2. Syncope and hypotension. All the cultures are pending. He does not have leukocytosis. Lactic acid is within the acceptable range. Most likely secondary to dehydration and use of antihypertensive medications. Hold antihypertensives at this time. Continue IV fluid hydration. 3. Attention deficit disorder. Continue home dose of Adderall at this time. 4. Hypokalemia. Patient was given potassium chloride 20 mEq by mouth times one dose today morning. 5. Hyperphosphatemia. It is secondary to renal failure. Phosphorus level should improve with improvement in the renal function. Thank you for involving me in the care of this patient. I shall be happy to follow the patient along with tomorrow morning. Patient is okay to be downgraded out of ICU into the medical-surgical unit.
[2020-02-02 15:07] LABS: APPEARANCE, URINE CLEAR (CLEAR); BACTERIA, URINE AUTO NEGATIVE (NEGATIVE); BILIRUBIN, URINE AUTO NEGATIVE (NEGATIVE); BLOOD, URINE BLOOD 1+ (NEGATIVE); COLOR, URINE YELLOW (YELLOW); GLUCOSE, URINE (UA) AUTO NEGATIVE (NEGATIVE); KETONE, URINE AUTO NEGATIVE (NEGATIVE); LEUKOCYTE ESTERASE, URINE AUTO NEGATIVE (NEGATIVE); MUCUS, URINE SMALL (NEGATIVE); NITRITE, URINE AUTO NEGATIVE (NEGATIVE); PROTEIN, URINE AUTO 1+ mg/dL (NEGATIVE); RBC, URINE AUTO 0 /HPF (0-3); SPECIFIC GRAVITY URINE AUTO 1.018 (1.002-1.035); SQUAMOUS EPITHELIAL CELL UR AU 0 /HPF (0-6); UROBILINOGEN, URINE AUTO 0.2 mg/dL (0.0-2.0); WBC, URINE AUTO 2 /HPF (0-3)
--- NOTE | 2020-02-02 15:52 | IPNPDOC ---
Text Note Date of Service The patient was seen on 02/02/20. NOTE Pt seen and examined. Hypotension 2/2 Severe dehydration in addition to BP Meds. Improving. BP improved. Cr improved. Cont IVF. Appeciate nephro input. VS,Fishbone, I+O VS, Fishbone, I+O Laboratory Tests 02/01/20 20:31 02/02/20 06:55 Vital Signs Date Time Temp Pulse Resp B/P (MAP) Pulse Ox O2 Delivery O2 Flow Rate FiO2 02/02/20 14:20 98.1 78 18 104/61 (75) 99 Room Air I&O- Last 24 Hours up to 6 AM 02/02/20 06:00 Intake Total 3140 ml Balance 3140 ml MALCOM BUSH MD Feb 02, 2020 15:52
[2020-02-03] MEDS: NS 1,000 ML IV SCH ×2 (00:33→08:41)
[2020-02-03] MEDS: HEPARIN SOD (PORCINE) 5000UNITS/ML 1ML VIAL/SYRINGE SC SCH (00:33)
[2020-02-03 06:00] VITALS: BP 96/50
[2020-02-03 08:22] LABS: BASO % 0.4 % (0.0-1.0); EOS % 0.6 % (0.0-3.0); HEMATOCRIT 37.4 % (42.0-52.0); HEMOGLOBIN 12.6 g/dl (13.5-17.5); LYMPH # 1.1 10^3/uL (1.5-5.0); LYMPH % 21.3 % (24.0-44.0); MEAN CORPUSCULAR HEMOGLOBIN 31.1 pg (27.0-33.0); MEAN CORPUSCULAR HGB CONC 33.7 g/dl (32.0-36.5); MEAN CORPUSCULAR VOLUME 92.3 fl (80.0-96.0); MONO # 0.5 10^3/uL (0.0-0.8); MONO % 9.1 % (0.0-5.0); NEUTROPHILS # 3.6 10^3/uL (1.5-8.5); NEUTROPHILS % 68.4 % (36.0-66.0); PLATELET COUNT, AUTOMATED 194 10^3/uL (150-450); RED BLOOD COUNT 4.05 10^6/uL (4.30-6.10); WHITE BLOOD COUNT 5.3 10^3/uL (4.0-10.0)
[2020-02-03] MEDS: TAMSULOSIN 0.4 MG CAP PO SCH (08:44)
[2020-02-03] MEDS: AMPHETAMINE/DEXTROAMPHETAMINE 5 MG *ER* CAPSULE (ADDERALL XR) PO SCH (08:44)
[2020-02-03 08:52] VITALS: BP_SYST 120; BP_SYST 122; BP_SYST 126; BP_DIAS 64; BP_DIAS 68; BP_DIAS 69
[2020-02-03 09:08] LABS: ALBUMIN 2.7 GM/DL (3.2-5.2); BILIRUBIN,TOTAL 0.4 MG/DL (0.2-1.0); CALCIUM LEVEL 7.7 MG/DL (8.5-10.1); CREATININE FOR GFR 1.42 MG/DL (0.70-1.30); TOTAL PROTEIN 5.9 GM/DL (6.4-8.2)
[2020-02-03] MEDS ORDERED: NICO14PA TD (10:21)
[2020-02-03] MEDS ORDERED: ADDERALL 5 MG TAB PO SCH (12:00)
[2020-02-03] MEDS ORDERED: ADDERALL 5 MG TAB PO ONE (12:00)
== END 2020-02-03 11:27 | disposition home or self-care (01) | DRG 469 ==
LOC: M ED 19:42 → M ED INP 23:37 → ENRESERV 02-02 05:16 → M ICU 02-02 06:06 → M MSPAV 02-02 14:19
PROVIDERS: ADMIT Internal Medicine; ATTEND Internal Medicine
DX: N17.9 Acute kidney failure, unspecified (principal); I95.9 Hypotension, unspecified; E83.39 Other disorders of phosphorus metabolism; E87.6 Hypokalemia; I12.9 Hypertensive chronic kidney disease with stage 1 through stage 4 chronic kidney disease, or unspecified chronic kidney disease; Z79.899 Other long term (current) drug therapy; F17.200 Nicotine dependence, unspecified, uncomplicated; M51.36 Other intervertebral disc degeneration, lumbar region; E86.0 Dehydration; G47.00 Insomnia, unspecified; F90.9 Attention-deficit hyperactivity disorder, unspecified type; N18.3 Chronic kidney disease, stage 3 (moderate)

== ENCOUNTER 2020-04-23 23:02 | Emergency (ER) | payer OTHER ==
[~2020-04-23] VITALS: Ht 175.3 cm; Wt 86.4 kg
[~2020-04-23 23:02] MED LIST changes: +ADDE30CA3 PO; +ADDE30TA PO; +HYDR-3363 PO; +NICO14PA TD; +PROAAER10 INH
[2020-04-23] MEDS ORDERED: TETANUS/DIPHTHERIA TOX ADSORB ADULT 0.5ML SYR/VIAL (90714) IM ONE (23:30)
--- NOTE | 2020-04-23 23:49 | REPVR ---
PROCEDURE INFORMATION: Exam: XR Pelvis Exam date and time: 04/23/2020 11:36 PM Age: 49 years old Clinical indication: Hip pain; Left hip; Additional info: Trauma TECHNIQUE: Imaging protocol: XR pelvis. Views: 1 or 2 view. COMPARISON: CR nose-rectum r-o f b X-RAY 01/21/2020 2:17 AM FINDINGS: Bones/joints: There is no fracture or dislocation. The hip joint spaces are preserved. No arthropathy is noted. The sacroiliac joints are unremarkable. The pubic symphysis is unremarkable. Soft tissues: Unremarkable. IMPRESSION: No fracture or dislocation. Electronically signed by: Benedicto Zabala On 04/23/2020 23:49:03 PM
--- NOTE | 2020-04-23 23:50 | REPVR ---
PROCEDURE INFORMATION: Exam: XR Chest, 1 View Exam date and time: 04/23/2020 11:36 PM Age: 49 years old Clinical indication: Trauma TECHNIQUE: Imaging protocol: XR of the chest Views: 1 view. COMPARISON: CR - PORTABLE CHEST X-RAY 02/01/2020 9:07:40 PM (The report from this study was not available for review at the time of this interpretation.) FINDINGS: Lungs: Unremarkable. No consolidation. No pulmonary edema. Pleural space: Unremarkable. No pleural effusion or pneumothorax is identified. Heart/Mediastinum: Unremarkable. No cardiomegaly. Bones/joints: Unremarkable. IMPRESSION: No acute findings. Electronically signed by: Benedicto Zabala On 04/23/2020 23:50:29 PM
--- NOTE | 2020-04-24 00:04 | REPVR ---
PROCEDURE INFORMATION: Exam: XR Left Femur Exam date and time: 04/23/2020 11:49 PM Age: 49 years old Clinical indication: Pain; Left; Patient HX: Puncture wound mid-thigh medially; Additional info: Rule out fracture TECHNIQUE: Imaging protocol: XR Left femur. Views: 2 views. COMPARISON: No relevant prior studies available. FINDINGS: Bones/joints: There is no fracture or dislocation of the left hip or left femur. There are no bony destructive changes. Soft tissues: There are foci of gas in the soft tissues in the medial aspect of the left upper thigh. No radiopaque foreign body is noted. IMPRESSION: 1. Soft tissue gas in the medial aspect of the left upper thigh. 2. No fracture or dislocation of the left hip or left femur. Electronically signed by: Benedicto Zabala On 04/24/2020 00:04:00 AM
--- NOTE | 2020-04-24 00:04 | REPVR ---
PROCEDURE INFORMATION: Exam: XR Left Knee Exam date and time: 04/23/2020 11:49 PM Age: 49 years old Clinical indication: Pain; Thigh; Left; Additional info: Rule out fracture TECHNIQUE: Imaging protocol: XR Left knee. Views: 1 or 2 views. COMPARISON: No relevant prior studies available. FINDINGS: Bones/joints: There is no fracture or dislocation. No joint effusion is identified. The joint spaces are preserved. No arthropathy is noted. Soft tissues: Unremarkable. IMPRESSION: No fracture or dislocation of the left knee. Electronically signed by: Benedicto Zabala On 04/24/2020 00:04:13 AM
[2020-04-24 00:13] LABS: BASO % 0.6 % (0.0-1.0); EOS % 0.2 % (0.0-3.0); HEMATOCRIT 39.3 % (42.0-52.0); HEMOGLOBIN 13.5 g/dl (13.5-17.5); LYMPH # 0.9 10^3/uL (1.5-5.0); LYMPH % 13.9 % (24.0-44.0); MEAN CORPUSCULAR HEMOGLOBIN 30.1 pg (27.0-33.0); MEAN CORPUSCULAR HGB CONC 34.4 g/dl (32.0-36.5); MEAN CORPUSCULAR VOLUME 87.5 fl (80.0-96.0); MONO # 0.6 10^3/uL (0.0-0.8); MONO % 9.1 % (0.0-5.0); NEUTROPHILS # 4.9 10^3/uL (1.5-8.5); PLATELET COUNT, AUTOMATED 219 10^3/uL (150-450); RED BLOOD COUNT 4.49 10^6/uL (4.30-6.10); WHITE BLOOD COUNT 6.4 10^3/uL (4.0-10.0)
[2020-04-24 00:42] LABS: ALBUMIN 3.6 GM/DL (3.2-5.2); ALT/SGPT 32 U/L (12-78); BILIRUBIN,DIRECT 0.1 MG/DL (0.0-0.2); BILIRUBIN,TOTAL 0.4 MG/DL (0.2-1.0); BLOOD UREA NITROGEN 16 MG/DL (7-18); CALCIUM LEVEL 8.7 MG/DL (8.5-10.1); CARBON DIOXIDE LEVEL 27 MEQ/L (21-32); CHLORIDE LEVEL 109 MEQ/L (98-107); CREATININE FOR GFR 1.04 MG/DL (0.70-1.30); ETHYL ALCOHOL (ETHANOL) < 0.003 % (0.000-0.010); GLOMERULAR FILTRATION RATE > 60.0 (>56); GLUCOSE, FASTING 100 MG/DL (70-100); POTASSIUM SERUM 3.6 MEQ/L (3.5-5.1); SODIUM LEVEL 142 MEQ/L (136-145); TOTAL PROTEIN 6.8 GM/DL (6.4-8.2)
[2020-04-24] MEDS ORDERED: MORPHINE 10 MG/ML 1ML VIAL (J2270) IM ONE (00:45)
[2020-04-24] MEDS ORDERED: KETAMINE HCL 200 MG/20 ML VIAL IV ONE (01:15)
[2020-04-24] MEDS ORDERED: LIDOCAINE 1% MDV 20ML VIAL SC ONE (01:15)
[2020-04-24 02:09] LABS: AMPHETAMINES LEVEL URINE POSITIVE (NEGATIVE); BARBITURATES URINE NEGATIVE (NEGATIVE); BENZODIAZEPINES URINE NEGATIVE (NEGATIVE); CANNABINOIDS URINE POSITIVE (NEGATIVE); COCAINE METABOLITE URINE NEGATIVE (NEGATIVE); METHADONE URINE NEGATIVE (NEGATIVE); OPIATES URINE POSITIVE (NEGATIVE); PHENCYCLIDINE URINE NEGATIVE (NEGATIVE)
[2020-04-24 02:30] VITALS: BP 148/80
== END 2020-04-24 02:46 | disposition home or self-care (01) ==
LOC: M ED 23:02
DX: S71.112A Laceration without foreign body, left thigh, initial encounter (principal); M25.552 Pain in left hip; V18.0XXA Pedal cycle driver injured in noncollision transport accident in nontraffic accident, initial encounter; W22.8XXA Striking against or struck by other objects, initial encounter; Y93.55 Activity, bike riding; Y92.9 Unspecified place or not applicable; F17.290 Nicotine dependence, other tobacco product, uncomplicated; Z79.899 Other long term (current) drug therapy
CPT/HCPCS: 12002; 71045; 72170; 73552; 73560; 80048; 80076; 80307; 85025; 86850; 86900; 86901; 90471; 90714; 96372; 96374; 99285; G0480; J2270

== ENCOUNTER 2020-04-30 10:37 | Emergency (ER) | payer OTHER ==
[~2020-04-30] VITALS: Ht 175.3 cm; Wt 88.9 kg
[2020-04-30] MEDS ORDERED: CEPH500C (10:45)
[2020-04-30] MEDS ORDERED: AMLO1TAB24 (10:45)
[2020-04-30] MEDS ORDERED: ONDANSETRON 4MG/2ML VIAL IV ONE (11:15)
[2020-04-30] MEDS ORDERED: MORPHINE 4 MG/ML 1ML VIAL/SYRINGE (J2270) IV ONE (11:15)
[2020-04-30] MEDS ORDERED: NS 1,000 ML IV ONE (11:15)
[2020-04-30] MEDS ORDERED: AMPICILLIN SOD/SULBACTAM SOD 3 GM in D5W MINI-BAG PLUS 100 ML IV ONE (11:15)
[2020-04-30 11:29] LABS: BASO % 0.5 % (0.0-1.0); EOS # 0.1 10^3/uL (0.0-0.5); HEMATOCRIT 39.2 % (42.0-52.0); HEMOGLOBIN 13.4 g/dl (13.5-17.5); LYMPH # 1.1 10^3/uL (1.5-5.0); LYMPH % 17.7 % (24.0-44.0); MEAN CORPUSCULAR HEMOGLOBIN 29.9 pg (27.0-33.0); MEAN CORPUSCULAR HGB CONC 34.2 g/dl (32.0-36.5); MEAN CORPUSCULAR VOLUME 87.5 fl (80.0-96.0); MONO # 0.5 10^3/uL (0.0-0.8); MONO % 7.6 % (0.0-5.0); NEUTROPHILS # 4.4 10^3/uL (1.5-8.5); PLATELET COUNT, AUTOMATED 260 10^3/uL (150-450); RED BLOOD COUNT 4.48 10^6/uL (4.30-6.10)
[2020-04-30 11:50] LABS: BLOOD UREA NITROGEN 15 MG/DL (7-18); C REACTIVE PROTEIN QUANTITATIV 1.09 MG/DL (0.00-0.30); CALCIUM LEVEL 8.6 MG/DL (8.5-10.1); CARBON DIOXIDE LEVEL 30 MEQ/L (21-32); CHLORIDE LEVEL 104 MEQ/L (98-107); CREATININE FOR GFR 1.14 MG/DL (0.70-1.30); GLOMERULAR FILTRATION RATE > 60.0 (>56); GLUCOSE, FASTING 96 MG/DL (70-100); POTASSIUM SERUM 3.5 MEQ/L (3.5-5.1); SODIUM LEVEL 137 MEQ/L (136-145)
[2020-04-30 12:06] LABS: ERYTHROCYTE SEDIMENTATION RATE 10 mm/hr (0-20)
[2020-04-30] MEDS ORDERED: BACI500O21 TOP (12:53)
[2020-04-30 12:58] VITALS: BP 136/77
--- NOTE | 2020-04-30 15:05 | REPVR ---
PROCEDURE INFORMATION: Exam: US Left Non-Vascular Joint or Other Extremity Structure, Limited Lower Extremity Exam date and time: 04/30/2020 11:47 AM Age: 49 years old Clinical indication: Injury or trauma; Fall; Puncture wound; Not specified; Upper leg; Left; Additional info: Wound to left inner thigh with firm, red area surrounding TECHNIQUE: Imaging protocol: Left US joint or other nonvascular extremity structure or structures. Real-time ultrasound with image documentation. Limited study. Exam focused on the lower extremity in the region of clinical interest. COMPARISON: No relevant prior studies available. FINDINGS: Soft tissues: Grayscale ultrasound images of the "left medial thigh area of wound" soft tissues are submitted. No focal abscess is imaged. An area of shadowing emanating from the skin, consistent with the site of puncture wound, is noted. Minimal edema is present within the imaged subcutaneous fat. No foreign body is identified. IMPRESSION: 1. No soft tissue abscess is imaged. 2. Minimal edema within the subcutaneous fat consistent with trauma and/or cellulitis. Electronically signed by: Angel Santos On 04/30/2020 15:05:34 PM
== END 2020-04-30 13:13 | disposition home or self-care (01) ==
LOC: M ED 10:37
DX: L08.9 Local infection of the skin and subcutaneous tissue, unspecified (principal); Z79.899 Other long term (current) drug therapy
CPT/HCPCS: 76882; 80048; 83605; 85025; 85652; 86140; 96365; 96375; 99283; J2270; J2405

== ENCOUNTER 2021-02-12 14:23 | Emergency (ER) | payer OTHER ==
[~2021-02-12] VITALS: Ht 175.3 cm; Wt 85.9 kg
[~2021-02-12 14:23] MED LIST changes: +ALBE200T18 PO; -ALBE200T7 PO; +AMLO1TAB24; +BACI500O21 TOP; +CEPH500C; +GABA-283 PO; -GABA-845 PO; +LISI10TA22; -LISI10TA4; -LISI40TA; -LISI40TA PO; +LISI40TA4; +LISI40TA4 PO; +MIRT-62; +OMEP40CA4; -OMEP40CA97; -REME15TA
[2021-02-12 15:52] LABS: BASO % 0.5 % (0.0-1.0); EOS % 0.7 % (0.0-3.0); HEMATOCRIT 45.9 % (42.0-52.0); HEMOGLOBIN 15.8 g/dl (13.5-17.5); LYMPH # 1.1 10^3/uL (1.5-5.0); LYMPH % 19.8 % (24.0-44.0); MEAN CORPUSCULAR HEMOGLOBIN 30.2 pg (27.0-33.0); MEAN CORPUSCULAR HGB CONC 34.4 g/dl (32.0-36.5); MEAN CORPUSCULAR VOLUME 87.8 fl (80.0-96.0); MONO # 0.4 10^3/uL (0.0-0.8); MONO % 6.9 % (2.0-8.0); NEUTROPHILS % 71.9 % (36.0-66.0); PLATELET COUNT, AUTOMATED 268 10^3/uL (150-450); RED BLOOD COUNT 5.23 10^6/uL (4.30-6.10); WHITE BLOOD COUNT 5.5 10^3/uL (4.0-10.0)
[2021-02-12] MEDS ORDERED: ISOVUE-370 76% 100ML VIAL As Ordered ONE (16:29)
[2021-02-12 16:33] LABS: ALBUMIN 3.6 GM/DL (3.2-5.2); ALT/SGPT 28 U/L (12-78); BILIRUBIN,DIRECT < 0.1 MG/DL (0.0-0.2); BILIRUBIN,TOTAL 0.3 MG/DL (0.2-1.0); CK-MB VALUE MASS < 1.0 NG/ML (<3.6); CPK CREATINE PHOSPHOKINASE 55 U/L (39-308); FREE T4 0.78 NG/DL (0.76-1.46); LIPASE 388 U/L (73-393); MB/CK RELATIVE INDEX 1.82 (< OR =4); NT-PRO BNP 5 PG/ML (<125); TOTAL PROTEIN 7.1 GM/DL (6.4-8.2); TROPONIN I < 0.02 NG/ML (< 0.10)
--- NOTE | 2021-02-12 17:06 | REP ---
INDICATION: R/O PE. COMPARISON: None. TECHNIQUE: CT angiogram chest performed following the intravenous administration of 100 cc of Isovue 370. Sagittal and coronal reconstruction images are performed. FINDINGS: Lungs: There are mild dependent atelectatic changes bilaterally. Mediastinum: No adenopathy. Pulmonary arteries: No evidence of pulmonary embolism. Debo: No adenopathy. Axilla: No adenopathy. Pleura: No effusion. Heart: Not enlarged. Thoracic aorta: No aneurysm or dissection. Upper abdominal structures: There is a small hiatal hernia. Visualized osseous structures: Unremarkable. IMPRESSION: No CT evidence of pulmonary embolism. No infiltrate seen. <Electronically signed by Danny Holt > 02/12/21 [id number]
--- NOTE | 2021-02-12 17:15 | REP ---
INDICATION: luq pain COMPARISON: None. TECHNIQUE: CT Scan of the abdomen and pelvis was performed with intravenous administration of 100 cc of Isovue 370, without oral contrast. Sagittal and coronal reconstruction images are performed. FINDINGS: Lung bases: There is a small hiatal hernia. Tiny bilateral pleural effusions with mild dependent atelectatic changes. Liver: Normal Gallbladder: Unremarkable. Spleen: Normal. Adrenals: There is a benign right adrenal myelolipoma 8.5 cm in maximum diameter.. Pancreas: Normal. Kidneys: Normal. Small and large bowel: Unremarkable. Free fluid: None. Abdominal aorta: No aneurysm or dissection. Adenopathy: None. Appendix: Not inflamed. Osseous structures: Unremarkable. Pelvis: No mass. IMPRESSION: Small hiatal hernia. Tiny bilateral effusions and mild dependent atelectatic changes. Benign right adrenal myelolipoma. <Electronically signed by Danny Holt > 02/12/21 8021
[2021-02-12] MEDS ORDERED: AMLO10TA PO (17:26)
[2021-02-12 17:33] VITALS: BP 139/81
--- NOTE | 2021-02-12 19:59 | ECGEPIP ---
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
== END 2021-02-12 17:47 | disposition home or self-care (01) ==
LOC: M ED 14:23
DX: R07.9 Chest pain, unspecified (principal); R05 Cough; K44.9 Diaphragmatic hernia without obstruction or gangrene; D35.00 Benign neoplasm of unspecified adrenal gland; Z76.0 Encounter for issue of repeat prescription; I10 Essential (primary) hypertension; F41.9 Anxiety disorder, unspecified; F90.9 Attention-deficit hyperactivity disorder, unspecified type; F17.200 Nicotine dependence, unspecified, uncomplicated; Z79.899 Other long term (current) drug therapy
CPT/HCPCS: 36415; 71275; 74177; 80047; 80076; 82550; 82553; 83690; 83880; 84439; 84443; 85025; 93005; 93041; 94760; 99285; Q9967

== ENCOUNTER 2021-05-13 16:54 | Emergency (ER) | payer OTHER ==
[~2021-05-13] VITALS: Ht 175.3 cm; Wt 86.1 kg
[~2021-05-13 16:54] MED LIST changes: +AMLO10TA PO
--- OUTSIDE RECORDS SUMMARY | 2021-05-13 16:58 | CCD ---
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 166456939 Problem Attention deficit hyperactiv ity disorder (ADHD), predominantly hyperactive type F90.1 Active confirmed 610915201 Problem Generalized anxiety disorder F41.1 Active confirme d 77416381 Problem Family history of erectile dysfunction Z84.2 A ctive confirmed 237503189 ALLERGIES Allergen (clinical drug ingredient) Drug/Non Drug Allergy do cumented on EMR Reaction Allergy Type Onset Date Status Beta ermias Anaphylaxis Non Drug Allergy Activ e ENCOUNTERS from 1970 to 2021-03-16 Encounter Location Date Provider Diagnosis [place] [id number] [facility] [phone] [place] [address] Feb, Evelina Dyson IMMUNIZATIONS No Information SOCIAL HISTORY Sex Assigned At : Social History Observation Description Sex Assigned At Unknown Education: Question Answer Notes Level of Education: Finished College Audit Question Answer Notes Total Score: 0 Interpretation: Alcohol Education Language: Question Answer Notes Languages spoken: [place] Citizen Latter-Day: Question Answer Notes Latter-Day 21 [employer] Sexual Hx: Question Answer Notes Had sex in the last 12 months (vaginal, oral, or anal)? Yes Have you ever had an STD? No with Women only Drug and Alcohol Question Answer Notes Total Score: 2 Interpretation: Low level Alcohol Screening: Question Answer Notes Did you have a drink containing alcohol in the past year? No Points 0 Interpretation Negative REASON FOR REFERRAL No Information VITAL SIGNS No information MEDICATIONS Medication SIG (Take, Route, Frequency, Duration) Notes Start Da te End Date Status Cephalexin 500 MG 1 tablet Orally four times daily for 7 day(s) Apr, Active oxyCODONE-Acetaminophen 5-325 MG 1 tablet as needed Or ally every 6 hrs for 3 days Oct, Not-Taking Viagra 100 MG 1 tablet as needed Orally Once a day for 30 day(s) May, Not-Taking Adderall 30 MG 1 tablet Orally in the afternoon Active Adderall XR 30 MG 1 capsule in the morning Orally Once a day Active Nicotine 14 MG/24HR 1 patch to skin Transdermal Once a day Active traZODone HCl 150 MG 2 tab Orally Once a day for 30 days Active Omeprazole 40 MG 1 capsule Orally Once a day as needed for 30 days Not-Taking hydrOXYzine HCl 25 mg 1-2 tablet as needed Orally four times cullen ly as needed Active Cyclobenzaprine HCl 10 MG 1 tablet as needed Orally Th ree times a day for 30 days Not-Taking amLODIPine Besylate 5 MG 1 tablet Orally Once a day for 90 day(s) Active Albuterol Sulfate HFA 108 (90 Base) MCG/ACT 1 puff as needed Inhalation every 4 hrs for 7 days Jan, Active Meloxicam 15 MG 1 tablet Orally Once a day as needed for 30 days Not-Taking PROCEDURES No Information RESULTS No Results REASON FOR VISIT amLODIPine Besylate which dose? MEDICAL (GENERAL) HISTORY Type Description Date Medical History HTN Medical History ADD panic disorder sees October at [facility] / Dr Estes Medical History Age 16-21 residential Medical History DDD lumbar osteoarthritis Medical History Insomnia Surgical History finger reconstruction Hospitalization History dehydration 01/2020 [place] No Information Health Concerns No Information MEDICAL EQUIPMENT No Information MENTAL STATUS No Information FUNCTIONAL STATUS No Information ASSESSMENTS No Information PLAN OF TREATMENT Medication Medication Name Sig Start Date Stop Date amLODIPine Besylate 5 MG 1 tablet Orally Once a day for 90 day(s ) Insurance Providers Payer Name Payer Address Payer Phone Insured Name Patient Relati onship to Insured Coverage Start Date Coverage End Date [employer] CLAIM[employer] DEPT [address] [facility] [phone] TEE MENDIOLA self
--- OUTSIDE RECORDS SUMMARY | 2021-05-13 16:58 | CCD ---
Author Author [facility] Organization [facility] Address Unknown Phone Unavailable Care Team Providers Care Pulverizer Tender Name Role Phone AGARWAL, G EDWARD RPA Unavailable Unavailable AGARWAL, G EDWARD RPA Unavailable Unavailable AGARWAL, G EDWARD RPA Unavailable Unavailable AGARWAL, G EDWARD RPA Unavailable Unavailable AGARWAL, G EDWARD RPA Unavailable Unavailable AGARWAL, G EDWARD RPA Unavailable Unavailable AGARWAL, G EDWARD RPA Unavailable Unavailable AGARWAL, G EDWARD RPA Unavailable Unavailable AGARWAL, G EDWARD RPA Unavailable Unavailable AGARWAL, G EDWARD RPA Unavailable Unavailable AGARWAL, G EDWARD RPA Unavailable Unavailable AGARWAL, G EDWARD RPA Unavailable Unavailable AGARWAL, G EDWARD RPA Unavailable Unavailable AGARWAL, G EDWARD RPA Unavailable Unavailable AGARWAL, G EDWARD RPA Unavailable Unavailable AGARWAL, G EDWARD RPA Unavailable Unavailable AGARWAL, G EDWARD RPA Unavailable Unavailable AGARWAL, G EDWARD RPA Unavailable Unavailable AGARWAL, G EDWARD RPA Unavailable Unavailable AGARWAL, G EDWARD RPA Unavailable Unavailable AGARWAL, G EDWARD RPA Unavailable Unavailable AGARWAL, G EDWARD RPA Unavailable Unavailable AGARWAL, G EDWARD RPA Unavailable Unavailable AGARWAL, G EDWARD RPA Unavailable Unavailable AGARWAL, G EDWARD RPA Unavailable Unavailable AGARWAL, G EDWARD RPA Unavailable Unavailable AGARWAL, G EDWARD RPA Unavailable Unavailable AGARWAL, G EDWARD RPA Unavailable Unavailable AGARWAL, G EDWARD RPA Unavailable Unavailable AGARWAL, G EDWARD RPA Unavailable Unavailable AGARWAL, G EDWARD RPA Unavailable Unavailable AGARWAL, G EDWARD RPA Unavailable Unavailable AGARWAL, G EDWARD RPA Unavailable Unavailable AGARWAL, G EDWARD RPA Unavailable Unavailable AGARWAL, G EDWARD RPA Unavailable Unavailable AGARWAL, G EDWARD RPA Unavailable Unavailable AGARWAL, G EDWARD RPA Unavailable Unavailable Re-disclosure Warning The records that you are about to access may contain information from federally-assisted alcohol or drug abuse programs. If such information is present, then the following federally mandated warning applies: This information has been disclosed to you from records protected by federal confidentiality rules (42 CFR part 2). The federal rules prohibit you from making any further disclosure of this information unless further disclosure is expressly permitted by the written consent of the person to whom it pertains or as otherwise permitted by 42 CFR part 2. A general authorization for the release of medical or other information is NOT sufficient for this purpose. The Federal rules restrict any use of the information to criminally investigate or prosecute any alcohol or drug abuse patient.The records that you are about to access may contain highly sensitive health information, the redisclosure of which is protected by Article 27-F of the [facility] Public Health law. If you continue you may have access to information: Regarding HIV / AIDS; Provided by facilities licensed or operated by the [facility] Office of Mental Health; or Provided by the [facility] Office for People With Developmental Disabilities. If such information is present, then the following [facility] mandated warning applies: This information has been disclosed to you from confidential records which are protected by state law. State law prohibits you from making any further disclosure of this information without the specific written consent of the person to whom it pertains, or as otherwise permitted by law. Any unauthorized further disclosure in violation of state law may result in a fine or mcc sentence or both. A general authorization for the release of medical or other information is NOT sufficient authorization for further disc losure. Family History Family Member Name Family Member Gender Family Member Status Date o f Status Description Data Source(s) Unknown Female Problem [facility] ([facility]) Encounters Encounter Providers Location Date Indications Data Source(s ) [place] [address] [facility] [address] 05/02/2021 12:00:00 AM EDT eCW1 ([facility]) [place] [address] [facility] [address] 02/27/2021 12:00:00 AM EDT eCW1 ([facility]) Outpatient Attender: JOON AGARWAL RPA 01/25 06:09:03 PM EDT - 01/25/2021 07:40:45 PM EDT [facility] ([facility] ) [place] [address] [facility] [address] 01/19/2021 12:00:00 AM EDT eCW1 ([facility]) [place] [address] [facility] [address] 08/28/2020 12:00:00 AM EST eCW1 ([facility]) [place] [address] [facility] [address] 04/27/2020 12:00:00 AM EDT eCW1 ([facility]) [place] [address] [facility] [address] 04/26/2020 12:00:00 AM EDT eCW1 ([facility]) Medications Medication Brand Name Start Date Product Form Dose Route Admi nistrative Instructions Pharmacy Instructions Status Indications Reaction Description Data Source(s) Cephalexin 500 MG Oral Tablet Cephalexin 500 MG 04/27/2020 12:00:00 AM EDT 1.0 {tablet} active Cephalexin 500 MG eCW1 ([facility]) Cephalexin 500 MG Oral Tablet Cephalexin 500 MG 04/27/2020 12:00:00 AM EDT 1.0 {tablet} active Cephalexin 500 MG eCW1 ([facility]) Cephalexin 500 MG Oral Tablet Cephalexin 500 MG 04/27/2020 12:00:00 AM EDT 1.0 {tablet} active Cephalexin 500 MG eCW1 ([facility]) Cephalexin 500 MG Oral Tablet Cephalexin 500 MG 04/27/2020 12:00:00 AM EDT 1.0 {tablet} active Cephalexin 500 MG eCW1 ([facility]) Cephalexin 500 MG Oral Tablet Cephalexin 500 MG 04/27/2020 12:00:00 AM EDT 1.0 {tablet} active Cephalexin 500 MG eCW1 ([facility]) Cephalexin 500 MG Oral Tablet Cephalexin 500 MG 04/27/2020 12:00:00 AM EDT 1.0 {tablet} active Cephalexin 500 MG eCW1 ([facility]) Insurance Providers Payer name Policy type / Coverage type Policy ID Covered green party ID Covered green party's relationship to dorman Policy Dorman Plan Information HERALCIO I [id number] Self [id number] Medicaid S [id number] S [id number] Managed Care [place] P [id number] S [id number] Medicaid Medicaid [id number] Self [id number] [employer]. [id number] Self [id number] FFS Self Pay [id number] Self [id number] ANSI-Commercial [id number] ANSI-Commercial [id number] ANSI-Commercial [id number] ANSI-Commercial twhbpfyz-36cr-7g656c53-32hg-[id number] gqlysbhs-81he-1g417v37-34nx-57u8769z3ucy ANSI-Commercial [id number]-jbtp-252p-ar91-28536b62p7pv [id number]-xldw-517t-rd13-05246a70y4kh ANSI-Commercial nkujbgdo-[id number] moogwtvq-d778-4820[id number] ANSI-Commercial 36q3ku9g-6047-8ss0-9in7-03l1vf49t0l7 97w8yj2i-1173-9hf5-5cd0-55z3ls99r4l1 ANSI-Commercial 8dtn9qt5-t0wm-53l2-soyg-0635w20ksq81 7wmt6vq0-s5up-19r4-xrke-4065j87eby30 ANSI-Commercial 8u9fmul3-8387-8176-tq2w-6zjk7e90y4o9 5b8sjei4-2579-9418-hc3s-8muo0y76k3o6 ANSI-Commercial jf3353hl-3lsy-875c-zdqi-d8094497q71y tt3082te-4nzw-160c-cepj-y2025454k15s ANSI-Commercial 0188qf72-3m62-05u2-uf33-7430264084xp 4882ut88-9n99-28a9-yh69-7966927417rj ANSI-Commercial 7w4tpx0v-e037-589i-85a2-oo559w3721w5 0x8hva1b-l132-088s-90w6-ii204e0411y8 ANSI-Commercial 9x9ul9fw-1jay-0068-oqtd-kx10hxitz3js 4d0qi1ol-2nke-0178-uzmi-ll37kvwba5qq ANSI-Commercial t3751670-45v6-01gz-h8cd-5l88971eo1k0 h7424082-77o1-11mk-w8rx-3v41425rl0l1 ANSI-Commercial 57858977-9l0b-9o03-84ki-8ws982690l1a 38171189-2e5p-6c23-85of-7ml354761p7x ANSI-Commercial v1oz2b55-6l9s-9639-2e98-z9k653e7l196 w4cz3p54-7t7b-2150-6f83-e9b621s6b990 ANSI-Commercial t551wx7z-5633-4q06-2e31-25ekk21080h8 e203oy7u-6821-5o36-5a51-61gwp09126g0 ANSI-Commercial 8wht230d-n4i8-0r21-dn24-5q9lb2y8f06r 7pdy812t-x3a9-3y94-nt38-5a6ab3b2x27v ANSI-Commercial s18j75tf-138p-96yi-jo02-070099h84850 d77m59wd-075q-93yh-jy52-739606u83124 ANSI-Commercial 52om965a-9szt-80si-4s17-81h50u5u7agf 95hv151c-2hwl-96xp-4t47-57x63h8f5ods ANSI-Commercial 202z0la4-57f1-362k-93v8-2e584aj89049 134j1um9-91c8-165w-87o5-0n890aw12111 ANSI-Commercial 2k1r8370-y46a-9c40-m1ze-la3o2ra1upr2 3s2e7472-a59r-7p70-s3rd-xl6z7hi7xnp3 ANSI-Commercial 046e9e0f-4t6f-88ly-529v-i4r166029y69 765z5h3s-8d9z-33dg-982z-f4o554474o28 ANSI-Commercial c2yg9w51-x6a5-8m02-m99r-b892oz24bn06 g9ng7o49-q1q4-5c28-n28l-k909kj32yp38 ANSI-Commercial 2a8lb8j8-q526-1id7-h463-mldqcobcr431 9b3ud0q4-y451-2hd5-w268-lnapzpmcy060 ANSI-Commercial w7e24rp6-5rom-84af-5171-439rts0os348 w7g25ec8-8toy-83nx-6362-548msl9ge386 ANSI-Commercial 0e253488-w6x2-3531-pvhy-1p5q04542e9m 6u133708-r3i2-2896-jqto-0q1n35306f1a ANSI-Commercial 5w054993-m458-0040-n0if-4539f7gs98lu 6i868568-j007-0516-p0qp-7972z7hy93sy ANSI-Commercial p7q25l1x-d512-4e8r-ksw7-77423p14b265 q3x20g7x-t819-1q7k-aub7-65255h44f874 ANSI-Commercial 565a4f9w-7kg4-25ck-578m-2pqa5cvo1144 743e7i5p-4ac0-80lu-520w-5iwj6czm2593 ANSI-Commercial 9cb02672-26l1-1xpj-v3q4-86c69u9960z2 0fw70984-72d6-0fgf-a0h9-18q06j1488b4 ANSI-Commercial 0c6725o3-h7aw-1z59-m8q9-53147q3v3t08 4w9126o3-g5qc-9f96-j3r9-66360a0j4u20 ANSI-Commercial cy41qd18-00t7-8069-96e6-9bs73tx4w894 jn02qh19-32l9-5914-88a2-7co30qc5z073 ANSI-Commercial 84f7b9f7-0fju-457m-a586-xbm5443m545p 38s6e2r6-6xcu-961f-c720-qkv0367t926b ANSI-Commercial sm269ec4-26bz-6x72-fp97-m71k3q36u8s3 ee790pe9-46lk-0j82-hz38-e36g3l84u7e9 ANSI-Commercial 4207y2d6-39x6-3ie2-t9k0-n88wn33728p8 5442r3l0-98l0-5xg3-o0l3-g91lo57256t8 ANSI-Commercial 6579135q-w4xt-6z45-0u8n-s797x333r496 6294456z-v6ex-3w65-2e8z-u785j303c955 ANSI-Commercial azop9673-u80g-86e5-8832-972spm2zf6k9 zmtz7196-b36k-70y3-3710-637hxf4yv2g1 ANSI-Commercial i8052gp0-0270-03zr-1862-61ve051069u9 s2694oj9-9907-82yu-8223-18hk187323h0 Medicaid S [id number] S [id number] [facility] [place] [facility] [place] [id number] 18 [id number] [place] [id number] 18 [id number] [facility] [place] [id number] 9.510.2147.0 Self [id number] [place] [facility] [place] [id number] 9.510.2147.0 Self [id number] [facility] [id number] 18 [id number] MEDICAID [id number] SP [id number] [place] [facility] [place] [id number] 9.510.2147.0 Self [id number] [place] [facility] [place] [id number] 9.510.2147.0 Self [id number] MEDICAID -O/P EMERGENCY ROOM [id number] 18 [id number] MEDICAID -O/P [id number] 18 [id number] SELF PAY ONLY [id number] SP [id number] [place] [place] [id number] 9.510.2147.0 Self [id number] MEDICAID -PHYSICIAN [id number] [facility] [id number] 1 [id number] [facility] [place] [id number] [id number] Self [id number] [place] [facility] [place] Commercial [id number] Self [facility] [place] [facility] [id number] 18 [id number] MEDICAID - O/P EMERGENCY ROOM [id number] 18 [id number] [facility] [place] [facility] [facility]P [id number] 18 [id number] [facility] [place] [facility] [id number] 18 [id number] HER[facility] [id number] SP [id number] [facility] [place] [facility] [facility]/P [id number] 18 [id number] [place] [facility] [place] [id number] S [id number] ANSI-Commercial [id number]-233u-353u-[id number] m6587c6f-363m-404e-8a25-74bo12y2yat3 ANSI-Commercial [id number]-071z-[id number] 23676u1l-919k-5pt1-3918-9012m4mt6z14 ANSI-Commercial 100z19z4-4962-4c20-a299-637o09d0r35f 979v71c9-8654-1r15-i500-572z55f9j38w Problems, Conditions, and Diagnoses No Information Surgeries/Procedures No Information Results No Information Social History No Information Vital Signs ID Date Data Source UNK Name Value Range Interpretation Code Description Data Source(s) Body weight 192.8 [lb_av] 192.8 [lb_av] eCW1 ([facility]) Body height 69 [in_i] 69 [in_i] eCW1 ([facility]) Body mass index (BMI) [Ratio] 28.47 kg/m2 28.47 kg/m2 eCW1 ([facility]) Heart rate 83 /min 83 /min eCW1 ([facility]) Respiratory rate 18 /min 18 /min eCW1 ([facility]) Body temperature 97.9 [degF] 97.9 [degF] eCW1 ( [facility]) Systolic blood pressure 128 mm[Hg] 128 mm[Hg] e CW1 ([facility]) Diastolic blood pressure 70 mm[Hg] 70 mm[Hg] eCW1 ([facility]) Patient Treatment Plan of Care Planned Activity Planned Date Details Description Data Source (s) Cephalexin 500 MG Oral Tablet 04/27/2020 12:00:00 AM EDT eCW1 ([facility])
--- OUTSIDE RECORDS SUMMARY | 2021-05-13 16:58 | CCD ---
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 649820460 Problem Attention deficit hyperactiv ity disorder (ADHD), predominantly hyperactive type F90.1 Active confirmed 743668899 Problem Generalized anxiety disorder F41.1 Active confirme d 98848848 Problem Family history of erectile dysfunction Z84.2 A ctive confirmed 250485862 ALLERGIES Allergen (clinical drug ingredient) Drug/Non Drug Allergy do cumented on EMR Reaction Allergy Type Onset Date Status Adrenergic beta-Antagonists Beta Adrenergic Blockers Anaphylaxis Drug Allergy Active ENCOUNTERS from 1970 to 2021-05-03 Encounter [place] [address] Apr, Evelina Dyson IMMUNIZATIONS No Information SOCIAL HISTORY Sex Assigned At : Social History Observation Description Sex Assigned At Unknown Education: Question Answer Notes Level of Education: Finished College Audit Question Answer Notes Total Score: 0 Interpretation: Alcohol Education Language: Question Answer Notes Languages spoken: East Timorese Zoroastrian: Question Answer Notes Zoroastrian 19 [employer] Sexual Hx: Question Answer Notes Had sex [...] Notes Start Da te End Date Status traZODone HCl 150 MG 2 tab Orally Once a day for 30 days Unknown Adderall 30 MG 1 tablet Orally in the afternoon Unknown Adderall XR 30 MG 1 capsule in the morning Orally Once a day Unknown Viagra 100 MG 1 tablet as needed Orally Once a day for 30 day(s) May, Unknown Albuterol Sulfate HFA 108 (90 Base) MCG/ACT 1 puff as needed Inhalation every 4 hrs for 7 days Jan, Unknown Meloxicam 15 MG 1 tablet Orally Once a day as needed for 30 days Unknown Omeprazole 40 MG 1 capsule Orally Once a day as needed for 30 days Unknown oxyCODONE-Acetaminophen 5-325 MG 1 tablet as needed Or ally every 6 hrs for 3 days Oct, Unknown Amlodipine Besylate 5 MG TAKE ONE TABLET BY MOUTH EVERY DAY for 90 Unknown Cephalexin 500 MG 1 tablet Orally four times daily for 7 day(s) Apr, Unknown Cyclobenzaprine HCl 10 MG 1 tablet as needed Orally Th ree times a day for 30 days Unknown hydrOXYzine HCl 25 mg 1-2 tablet as needed Orally four times cullen ly as needed Unknown Nicotine 14 MG/24HR 1 patch to skin Transdermal Once a day Unknown PROCEDURES No Information RESULTS No Results REASON FOR VISIT Appointment MEDICAL (GENERAL) HISTORY Type Description Date Medical History HTN Medical History ADD panic disorder sees October at [facility] Dr Estes Medical History Age [age] correction Medical History DDD lumbar osteoarthritis Medical History Insomnia Surgical History finger reconstruction Hospitalization History dehydration 01/2020 [place] No Information Health Concerns No Information MEDICAL EQUIPMENT No Information MENTAL STATUS No Information FUNCTIONAL STATUS No Information ASSESSMENTS No Information PLAN OF TREATMENT No Information Insurance Providers Payer Name Payer Address Payer Phone Insured Name Patient Relati onship to Insured Coverage Start Date Coverage End Date [facility] CORPORATE CLAIMS DEPT [address] [facility] [phone] TEE MENDIOLA self
[2021-05-13] MEDS ORDERED: IBUP-1022 PO (20:15)
[2021-05-13] MEDS ORDERED: carisoprodoL 350 MG TAB PO ONE (20:15)
[2021-05-13] MEDS ORDERED: AMLO10TA PO (20:15)
[2021-05-13] MEDS ORDERED: CYCL-707 PO (20:15)
--- OUTSIDE RECORDS SUMMARY | 2021-05-13 20:20 | CCD ---
Author Author [facility] Organization [facility] Address Unknown Phone Unavailable Care Team Providers Care Export Specialist Name Role Phone AGARWAL, G EDWARD RPA [...] is protected by Article 27-F of the [facility] Public Health law. If you continue you may have access to information: Regarding HIV / AIDS; Provided by facilities licensed or operated by the [facility] Office of Mental Health; or Provided by the [facility] Office for People With Developmental Disabilities. If such information is present, then the following [facility] mandated warning applies: This information has [...] law may result in a fine or fdc sentence or both. A general authorization for the release of medical or other information is NOT sufficient authorization for further disc losure. Family History Family Member Name Family Member Gender Family Member Status Date o f Status Description Data Source(s) Unknown Female Problem [facility] ([facility]) Encounters Encounter Providers Location Date Indications Data Source(s ) [place] [address] [facility] [address] 05/02/2021 12:00:00 AM EDT eCW1 ([facility]) [place] [address] [facility] [address] 02/27/2021 12:00:00 AM EDT eCW1 ([facility]) Outpatient Attender: JOON AGARWAL RPA 01/25 06:09:03 PM EDT - 01/25/2021 07:40:45 PM EDT [facility] ([facility] ) [place] [address] [facility] [address] 01/19/2021 12:00:00 AM EDT eCW1 ([facility]) [place] [address] [facility] [address] 08/28/2020 12:00:00 AM EST eCW1 ([facility]) Out[place] [address] [facility] [address] 04/27/2020 12:00:00 AM EDT eCW1 ([facility]) Unknown [address] [facility] [address] 04/26/2020 12:00:00 AM EDT eCW1 ([facility]) Medications Medication Brand Name Start Date Product Form Dose Route Admi nistrative Instructions Pharmacy Instructions Status Indications Reaction Description Data Source(s) Cephalexin 500 MG Oral Tablet Cephalexin 500 MG 04/27/2020 12:00:00 AM EDT 1.0 {tablet} active Cephalexin 500 MG eCW1 ([facility]) Cephalexin 500 MG Oral Tablet Cephalexin 500 MG 04/27/2020 12:00:00 AM EDT 1.0 {tablet} active Cephalexin 500 MG eCW1 ([facility]) Cephalexin 500 MG Oral Tablet Cephalexin 500 MG 04/27/2020 12:00:00 AM EDT 1.0 {tablet} active Cephalexin 500 MG eCW1 ([facility]) Cephalexin 500 MG Oral Tablet Cephalexin 500 MG 04/27/2020 12:00:00 AM EDT 1.0 {tablet} active Cephalexin 500 MG eCW1 ([facility]) Cephalexin 500 MG Oral Tablet Cephalexin 500 MG 04/27/2020 12:00:00 AM EDT 1.0 {tablet} active Cephalexin 500 MG eCW1 ([facility]) Cephalexin 500 MG Oral Tablet Cephalexin 500 MG 04/27/2020 12:00:00 AM EDT 1.0 {tablet} active Cephalexin 500 MG eCW1 (Formerly [facility]) Insurance Providers Payer name Policy type / Coverage type Policy ID Covered democrat ID Covered democrat's relationship to dorman Policy Dorman Plan Information HERACLIO I [id number] Self [id number] Medicaid S [id number] S [id number] Managed Care [place] P [id number] S [id number] Medicaid Medicaid [id number] Self [id number] [place] [employer] [id number] Self [id number] FFS Self Pay [id number] Self [id number] ANSI-Commercial [id number] ANSI-Commercial 71rpeu9f-v212-22r6-woa0-10r241a4e14g 23aumg1o-k958-34r7-bcv3-47x496h2k17q ANSI-Commercial [id number]-[id number]-r83c-3f10-q7v3-2i1qmbl39661 ANSI-Commercial xgvefxzz-31nx-4a192e44-02lu-85s9137g3qkq odyfleic-61jq-6z232z63-04ar-32y9169c9vqr ANSI-Commercial 9j51y282-nmjz-150v-kx20-13734n35i5oh 8r78v825-smex-016s-yj18-11161t39a4ui ANSI-Commercial govfcrid-c565-1236v092-3512-31l2-6pk37340v5x5 gkrifrha-m890-6091i659-0639-28t1-0et15235c2f1 ANSI-Commercial 44r2ua1b-8069-9ta3-6to7-57g2gh90t9u1 85q1eh4c-3398-3rk1-1ao9-75y4ep46m5h6 ANSI-Commercial 3vac7ej1-w5no-15c3-ywhl-4804c63tzn11 0gob8nw2-f4pz-80m3-ziex-8867k75zia59 ANSI-Commercial 0d6sagm4-9178-7403-ix3l-2dok2t14f1y1 0r6rbft6-3809-3901-gk7p-8vxe0f86p4z5 ANSI-Commercial yk4323mr-9aia-731w-oyyo-z0331356f74l nm1208sh-8rwn-205q-bcuv-j0223102s22c ANSI-Commercial 1885hf43-7h23-53x9-qa94-4119918638oh 4762hz19-7d41-94z2-fl12-2223369353xl ANSI-Commercial 9s1aqm4k-z469-770w-21i0-tl369t8150c6 5v9omw5j-k954-813i-05v0-fr215y9384v1 ANSI-Commercial 9m9gg6qc-1ywp-8730-mhki-qm69hgdws7zj 8t2ge8hg-9wwd-5927-hpmj-ww42pzhsu4zd ANSI-Commercial b6461059-63w3-39gz-n0rr-3a42505gp5p1 y5719861-53a2-15sv-v1mm-5m53737ad5r3 ANSI-Commercial 07578748-9f4t-2g30-98ca-5gq715121p9t 15610577-9k1f-2h49-85rd-0kp271780c6r ANSI-Commercial i1tq6u53-1l4j-5364-9b69-i6w582k4s227 t4wa7k42-9k0o-8987-5e18-t8m483t7l443 ANSI-Commercial t990bm9e-7971-0w88-0g05-84gfo97546f4 g084uz0l-1049-9r23-8t24-43pgp13267g0 ANSI-Commercial 2fmh308f-d2a7-2c37-fe88-2y0be0u5t70p 9smt792d-y4w4-1y68-ku92-6e2vy2l8l58p ANSI-Commercial v59x79gg-823d-85rq-sm11-898441v98011 q85k14af-660l-35id-vu57-418181d36762 ANSI-Commercial 32ka713p-8ons-39wr-1k37-58a44b0p5jmd 48vy325g-1wai-00tn-3m82-21y26t8k9inq ANSI-Commercial 999m8wa8-32e2-519r-76r4-5j812fe89027 507p4qy5-26c0-274z-11a7-8e501iu91732 ANSI-Commercial 3j4y2422-u58o-5b62-j1fb-oj2y9sp4nqb0 2i2w5325-z97u-3l59-k5hq-qm7i2xi8nko9 ANSI-Commercial 826h3t4l-4v2o-74ii-265m-o0v694839j28 522x4x5o-3b8o-31or-702f-e3x700145q62 ANSI-Commercial o8cz9i19-j5h3-5c26-x00t-y918uu08hs63 l8ap5b90-h1k6-7k14-y41e-t774hx04yd61 ANSI-Commercial 5b4dz2u4-p898-2bq7-h544-zsykhzldd529 0u6kc8l1-f101-1jt5-t724-qqfusxryj103 ANSI-Commercial k9a63ng6-0mwa-81rp-6258-680vzc9tb375 d1i28nm3-2lkh-41ss-8179-679pnm0fj562 ANSI-Commercial 8l674589-p6k1-9452-zcgs-9y1m10398k0l 5v457002-h4x8-9526-wwap-0r8d63679g7g ANSI-Commercial 8c749388-n639-5226-h1el-5165a2px97mc 5f853434-b872-2735-u8hl-1205b1zr97px ANSI-Commercial s7g12m1u-l994-5k1e-npi3-86356c72u744 e1k83w7d-r022-1i7e-acl6-82364x94m088 ANSI-Commercial 185h6o0r-4th2-15rg-565s-8gsr6zhu4747 349t4q3t-3kx8-49hy-299b-1gyh7mih1108 ANSI-Commercial 8re32073-18s5-7boy-a5d5-49v06q6616p9 6el07733-54q4-8rnc-o0e7-54j53l9771m6 ANSI-Commercial 1w1991p9-w9ob-3n41-y6o5-04350x4p1d86 1r3119c8-p4cj-5x08-x7k6-02693w0c5f80 ANSI-Commercial hd56ek90-36o8-6712-15p2-0oy98jg7n205 ga70sg20-13s3-0132-31q0-1yt88xl4w420 ANSI-Commercial 63f6k7b4-2dci-493y-v502-nuc0831t323z 60s8w3i1-7hqc-877b-r089-awo0046d740z ANSI-Commercial lt800di7-02gw-8j78-sm46-n11j2z92r5x7 mu782he0-66vw-0s89-ul65-x74a1q43r0w5 ANSI-Commercial 9697i1h7-76y8-4zf0-l3n4-q24lv16530e5 3468r4m0-28p3-5ci7-e3d9-a22ag54442k1 ANSI-Commercial 6160625g-c1ze-6e88-6u0m-g884k471g179 3073746l-a4wa-7s92-0o8r-d470r513o625 ANSI-Commercial mbzj4528-a88l-80t9-0219-456cbh8ou3o9 kycw3205-z65c-97h3-4894-115bhw6rw3k1 ANSI-Commercial i4660pm3-0284-25vg-6745-25xr889978z7 e9981zl4-7590-45ie-6353-98bh043977p0 Medicaid S [id number] S [id number] [facility] [place] [facility] [place] [facility] [place] [id number] 18 [id number] [facility] [place] [id number] 18 74 [id number] [place] [facility] [place] Commercial [id number] 9.510.2147.0 Self [id number] [facility] [id number] 9.510.2147.0 Self [id number] [facility] [place] -[place] [id number] 18 [id number] MEDICAID [id number] SP [id number] [facility] [place] Commercial [id number] 9.510.2147.0 Self [id number] [facility] [place] [facility] [id number] 9.510.2147.0 Self [id number] MEDICAID -O/P EMERGENCY ROOM [id number] 18 [id number] MEDICAID -O/P [id number] SELF PAY ONLY [id number] SP [id number] [facility] [place] [facility] [id number] 9.510.2147.0 Self [id number] MEDICAID -PHYSICIAN [id number] 1 [id number] [facility] [place] [facility] HMO [id number] 1 8 [id number] [place] [facility] [place] Commercial [id number] 9.510.2147.0 Self [id number] [facility] [place] [facility] [id number] Self [facility] [id number] 18 [id number] MEDICAID - O/P EMERGENCY ROOM [id number] 18 [id number] [facility] [place] [facility]/P [id number] 18 [id number] [facility] [id number] 18 [id number] HERAC[facility]IO [id number] SP [id number] [facility] [place] [facility]/P [id number] 18 [id number] [facility] [place] O [id number] S [id number] ANSI-Commercial m8414c9v-450n-031k-8c95-28lu96e5dee3 i9880c3k-862j-133p-5y08-50up28h0her4 ANSI-Commercial 12816i4n-664u-7za8-8712-3305b3tu0g84 51997r2k-435r-9hj6-0566-7438x8iq4k43 ANSI-Commercial 162c11o6-1529-5z71-a736-160l06u6u03f 979k77o1-1272-2i63-i286-429w99e8b55l Problems, Conditions, and Diagnoses No Information Surgeries/Procedures No Information Results No Information Social History No Information Vital Signs ID Date Data Source UNK Name Value Range Interpretation Code Description Data Source(s) Body weight 192.8 [lb_av] 192.8 [lb_av] eCW1 ([facility]) Body height 69 [in_i] 69 [in_i] eCW1 ([facility]) Body mass index (BMI) [Ratio] 28.47 kg/m2 28.47 kg/m2 eCW1 ([facility]) Heart rate 83 /min 83 /min eCW1 ([facility]) Respiratory rate 18 /min 18 /min eCW1 ([facility]) Body temperature 97.9 [degF] 97.9 [degF] eCW1 ( [facility]) Systolic blood pressure 128 mm[Hg] 128 mm[Hg] e CW1 ([facility]) Diastolic blood pressure 70 mm[Hg] 70 mm[Hg] eCW1 ([facility]) Patient Treatment Plan of Care Planned Activity Planned Date Details Description Data Source (s) Cephalexin 500 MG Oral Tablet 04/27/2020 12:00:00 AM EDT eCW1 ([facility])
[2021-05-13 21:14] VITALS: BP 148/74
== END 2021-05-13 21:15 | disposition home or self-care (01) ==
LOC: M ED 16:54
DX: Z76.0 Encounter for issue of repeat prescription (principal); M54.50 Low back pain, unspecified; I10 Essential (primary) hypertension; J45.909 Unspecified asthma, uncomplicated; Z79.899 Other long term (current) drug therapy

== ENCOUNTER → 2022-01-11 | Outpatient (REF) | payer OTHER ==
[~2022-01-11] MED LIST changes: +CYCL-707 PO; +IBUP-1022 PO
== END ==
LOC: M SFHCPLAZ 13:21
PROVIDERS: ATTEND Student in an Organized Health Care Education/Training Program
DX: F90.1 Attention-deficit hyperactivity disorder, predominantly hyperactive type (principal)

== ENCOUNTER 2022-10-15 16:14 | Emergency (ER) | payer OTHER ==
[~2022-10-15] VITALS: Ht 175.3 cm; Wt 85.8 kg
[2022-10-15] MEDS ORDERED: BOOSTRIX/ADACEL VACCINE (DIPHTH/PERTUSS/ACELL/TETANUS) 0.5ML SYR IM.IMMUN ONE (16:25)
[2022-10-15] MEDS ORDERED: ISOVUE-370 76% 100ML VIAL As Ordered ONE (16:32)
[2022-10-15 16:34] LABS: BASO # 0.1 10^3/uL (0.0-0.2); BASO % 0.7 % (0.0-1.0); EOS # 0.1 10^3/uL (0.0-0.5); EOS % 1.1 % (0.0-3.0); HEMATOCRIT 43.2 % (42.0-52.0); HEMOGLOBIN 15.5 g/dl (13.5-17.5); LYMPH # 2.4 10^3/uL (1.5-5.0); LYMPH % 33.2 % (24.0-44.0); MEAN CORPUSCULAR HEMOGLOBIN 30.3 pg (27.0-33.0); MEAN CORPUSCULAR HGB CONC 35.9 g/dl (32.0-36.5); MEAN CORPUSCULAR VOLUME 84.5 fl (80.0-96.0); MONO # 0.8 10^3/uL (0.0-0.8); MONO % 10.5 % (2.0-8.0); NEUTROPHILS % 54.2 % (36.0-66.0); PLATELET COUNT, AUTOMATED 311 10^3/uL (150-450); RED BLOOD COUNT 5.11 10^6/uL (4.30-6.10); WHITE BLOOD COUNT 7.4 10^3/uL (4.0-10.0)
[2022-10-15] MEDS ORDERED: levETIRAcetam INJection 1,000 MG in D5W 100 ML IV ONE (16:50)
[2022-10-15 16:59] LABS: ETHYL ALCOHOL (ETHANOL) 0.005 % (0.000-0.010)
[2022-10-15 17:04] LABS: ALKALINE PHOSPHATASE 138 U/L (46-116); ALT/SGPT 24 U/L (7.0-40); AST/SGOT 25 U/L (<34); BILIRUBIN,DIRECT 0.2 MG/DL (<0.4); BILIRUBIN,TOTAL 0.4 MG/DL (0.3-1.2); BLOOD UREA NITROGEN 29 MG/DL (9-23); CALCIUM LEVEL 9.3 MG/DL (8.5-10.1); CARBON DIOXIDE LEVEL 28 MMOL/L (20-31); CHLORIDE LEVEL 106 MMOL/L (98-107); CREATININE FOR GFR 0.93 MG/DL (0.70-1.30); GLOMERULAR FILTRATION RATE > 60.0 (>56); GLUCOSE, FASTING 113 MG/DL (60-100); POTASSIUM SERUM 3.4 MMOL/L (3.5-5.1); SODIUM LEVEL 138 MMOL/L (136-145); TOTAL PROTEIN 7.3 G/DL (5.7-8.2)
[2022-10-15 17:11] LABS: ABG BASE EXCESS 3.4 (-2.0-2.0); ABG HCO3 26.8 MEQ/L (22.0-26.0); ABG PARTIAL PRESSURE CO2 36.7 mmHg (35.0-45.0); ABG PARTIAL PRESSURE O2 80.9 mmHg (75.0-100.0); ABG STANDARD HCO3 27.5 MEQ/L (22.0-26.0); ABG TOTAL CO2 27.9 MEQ/L (22.0-29.0); ABG pH (ARTERIAL) 7.481 UNITS (7.350-7.450)
[2022-10-15 17:44] LABS: INR 0.91; PROTHROMBIN TIME 12.4 SECONDS (12.5-14.5)
[2022-10-15 17:46] LABS: PARTIAL THROMBOPLASTIN TIME 27.2 SECONDS (24.8-34.2)
[2022-10-15 17:49] LABS: APPEARANCE, URINE MANUAL CLEAR (CLEAR); COLOR, URINE MANUAL LT YELLOW (YELLOW)
[2022-10-15 17:50] LABS: BLOOD URINE MANUAL POSITIVE (NEGATIVE); SPECIFIC GRAVITY,URINE MANUAL 1.005 (1.002-1.035)
[2022-10-15 17:51] LABS: BILIRUBIN, URINE MANUAL NEGATIVE (NEGATIVE); GLUCOSE, URINE (UA) MANUAL NEGATIVE (NEGATIVE); KETONE, URINE MANUAL NEGATIVE (NEGATIVE); LEUKOCYTE ESTERASE, URINE MAN NEGATIVE (NEGATIVE); NITRITE, URINE MANUAL NEGATIVE (NEGATIVE); PROTEIN, URINE MANUAL TRACE mg/dL (NEGATIVE); UROBILINOGEN, URINE MANUAL NORMAL (NORMAL)
[2022-10-15] MEDS ORDERED: LORazepam 2 MG/ML 1ML VIAL IV STA ×2 (18:00→18:21)
[2022-10-15 18:11] LABS: SQUAMOUS EPITHELIAL CELL URINE SMALL AMOUNT /hpf (SMALL AMT)
[2022-10-15 18:12] LABS: AMORPHOUS SEDIMENT, URINE MOD AMOUNT (NEGATIVE); BACTERIA, URINE SMALL AMOUNT; HYALINE CAST, URINE NONE SEEN /lpf (0-1)
[2022-10-15 19:10] VITALS: BP 149/105
== END 2022-10-15 19:08 | disposition short-term general hospital (02) ==
LOC: M ED 16:14
DX: S06.5X0A Traumatic subdural hemorrhage without loss of consciousness, initial encounter (principal); S02.81XA Fracture of other specified skull and facial bones, right side, initial encounter for closed fracture; V00.831A Fall from motorized mobility scooter, initial encounter; I10 Essential (primary) hypertension; F90.9 Attention-deficit hyperactivity disorder, unspecified type; F41.9 Anxiety disorder, unspecified; F51.01 Primary insomnia; M51.37 Other intervertebral disc degeneration, lumbosacral region; Z79.52 Long term (current) use of systemic steroids; Z79.83 Long term (current) use of bisphosphonates; Z79.899 Other long term (current) drug therapy
CPT/HCPCS: 51702; 70450; 70486; 71045; 71260; 72125; 72128; 72131; 72170; 74177; 80047; 80048; 80076; 81000; 82077; 82803; 85025; 85610; 85730; 86850; 86900; 86901; 90471; 90715; 93005; 93041; 94760; 96374; 96375; 99291; J1953; J2060; Q9967

== ENCOUNTER 2022-10-29 09:15 | Inpatient (IN) | payer OTHER ==
[~2022-10-29] VITALS: Ht 172.7 cm; Wt 76.8 kg
[2022-10-29] MEDS: NICOTINE 14 MG/24 HR TRANSDERMAL TD SCH (09:00)
[2022-10-29] MEDS ORDERED: MIRALAX *UNIT DOSE* 17GM PACKET PO PRN (11:50)
[2022-10-29] MEDS ORDERED: LORazepam 2 MG/ML 1ML VIAL IM PRN (11:50)
[2022-10-29] MEDS ORDERED: ACETAMINOPHEN TAB 650MG DOSE (2X325MG) PO PRN (11:50)
[2022-10-29] MEDS ORDERED: BISACODYL 10MG SUPP PR PRN (11:50)
[2022-10-29] MEDS ORDERED: traZODone 50 MG TAB PO PRN (11:50)
[2022-10-29] MEDS ORDERED: LISI40TA4 PO (12:41)
[2022-10-29] MEDS ORDERED: DOCU5LIQ PO (12:41)
[2022-10-29] MEDS ORDERED: AMLO1TAB25 PO (12:41)
[2022-10-29] MEDS ORDERED: CLON0.2T PO (12:41)
[2022-10-29] MEDS ORDERED: BISA10SU27 PR (12:41)
[2022-10-29] MEDS ORDERED: QUET1TAB17 PO (12:41)
[2022-10-29] MEDS ORDERED: ACET1TAB55 PO (12:41)
[2022-10-29] MEDS ORDERED: PROP20TA72 PO (12:41)
[2022-10-29] MEDS ORDERED: HOME MED LIST COMPLETE! XX SCH (12:45)
[2022-10-29 12:50] VITALS: BP 108/70
[2022-10-29 14:00] VITALS: BP 123/58
[2022-10-29 15:10] VITALS: BP 113/60
[2022-10-29] MEDS: cloNIDine 0.2 MG TAB PO SCH ×2 (15:13→20:54)
[2022-10-29] MEDS: PROPRANOLOL 20 MG TAB PO SCH ×2 (15:13→20:54)
[2022-10-29] MEDS: QUEtiapine FUMARATE 25 MG TAB PO SCH ×2 (15:14→20:53)
[2022-10-29] MEDS: ADDERALL 5 MG TAB PO SCH (15:14)
[2022-10-29] MEDS: REMEDY PHYTOPLEX Z-GUARD PASTE 113GM TUBE (FROM STOREROOM PRODUCT) TOP SCH ×2 (15:15→20:55)
[2022-10-29] MEDS: COMBIVENT RESPIMAT 100-20MCG INHALER 4GM INH SCH ×2 (15:55→20:10)
[2022-10-29 20:00] VITALS: BP 104/68
[2022-10-29] MEDS: ACETAMINOPHEN 650MG ER TAB (TYLENOL ARTHRITIS) PO SCH (20:52)
[2022-10-29] MEDS: GABAPENTIN 100 MG CAP PO SCH (20:53)
[2022-10-29] MEDS: SENNA 8.6 MG TAB (SENOKOT) PO SCH (20:53)
[2022-10-29] MEDS: traZODone 50 MG TAB PO SCH (20:53)
[2022-10-29] MEDS: DOCUSATE SODIUM 100MG CAPSULE PO SCH (20:54)
[2022-10-30] MEDS ORDERED: carisoprodoL 350 MG TAB PO ONE (04:00)
[2022-10-30 06:00] VITALS: BP 112/79
[2022-10-30 06:55] LABS: BASO % 0.4 % (0.0-1.0); EOS % 0.4 % (0.0-3.0); HEMATOCRIT 39.4 % (42.0-52.0); HEMOGLOBIN 13.3 g/dl (13.5-17.5); LYMPH # 1.2 10^3/uL (1.5-5.0); LYMPH % 18.3 % (24.0-44.0); MEAN CORPUSCULAR HEMOGLOBIN 30.2 pg (27.0-33.0); MEAN CORPUSCULAR HGB CONC 33.8 g/dl (32.0-36.5); MEAN CORPUSCULAR VOLUME 89.5 fl (80.0-96.0); MONO # 0.5 10^3/uL (0.0-0.8); MONO % 6.9 % (2.0-8.0); NEUTROPHILS % 73.7 % (36.0-66.0); PLATELET COUNT, AUTOMATED 442 10^3/uL (150-450); WHITE BLOOD COUNT 6.8 10^3/uL (4.0-10.0)
[2022-10-30 07:22] LABS: ALBUMIN 2.9 G/DL (3.2-5.2); ALKALINE PHOSPHATASE 108 U/L (46-116); ALT/SGPT 27 U/L (7.0-40); AST/SGOT 14 U/L (<34); BILIRUBIN,TOTAL 0.4 MG/DL (0.3-1.2); BLOOD UREA NITROGEN 15 MG/DL (9-23); CALCIUM LEVEL 8.6 MG/DL (8.5-10.1); CARBON DIOXIDE LEVEL 29 MMOL/L (20-31); CHLORIDE LEVEL 102 MMOL/L (98-107); CREATININE FOR GFR 1.04 MG/DL (0.70-1.30); GLOMERULAR FILTRATION RATE > 60.0 (>56); GLUCOSE, FASTING 114 MG/DL (60-100); POTASSIUM SERUM 4.6 MMOL/L (3.5-5.1); SODIUM LEVEL 137 MMOL/L (136-145); TOTAL PROTEIN 6.4 G/DL (5.7-8.2)
[2022-10-30] MEDS: COMBIVENT RESPIMAT 100-20MCG INHALER 4GM INH SCH ×3 (07:48→20:33)
[2022-10-30] MEDS: REMEDY PHYTOPLEX Z-GUARD PASTE 113GM TUBE (FROM STOREROOM PRODUCT) TOP SCH ×3 (09:00→20:21)
[2022-10-30] MEDS ORDERED: lisinopriL 40MG TAB PO SCH (09:00)
[2022-10-30] MEDS: PROPRANOLOL 20 MG TAB PO SCH ×3 (09:00→20:20)
[2022-10-30] MEDS ORDERED: PANTOPRAZOLE 40MG TAB (PROTONIX) PO SCH (09:00)
[2022-10-30] MEDS: cloNIDine 0.2 MG TAB PO SCH ×3 (09:00→20:20)
[2022-10-30] MEDS: DOCUSATE SODIUM 100MG CAPSULE PO SCH ×2 (10:13→20:21)
[2022-10-30] MEDS: QUEtiapine FUMARATE 25 MG TAB PO SCH ×3 (10:13→17:39)
[2022-10-30] MEDS: ACETAMINOPHEN 650MG ER TAB (TYLENOL ARTHRITIS) PO SCH ×3 (10:13→20:20)
[2022-10-30] MEDS: NICOTINE 14 MG/24 HR TRANSDERMAL TD SCH (10:14)
[2022-10-30] MEDS: GABAPENTIN 100 MG CAP PO SCH (10:14)
[2022-10-30] MEDS: ADDERALL 5 MG TAB PO SCH (10:14)
[2022-10-30] MEDS: predniSONE 10MG TAB PO SCH ×2 (12:40→20:18)
[2022-10-30] MEDS: GABAPENTIN 300 MG CAP PO SCH ×2 (16:21→20:20)
[2022-10-30] MEDS: SENNA 8.6 MG TAB (SENOKOT) PO SCH (20:18)
[2022-10-30 20:20] VITALS: BP 137/70
[2022-10-30 21:00] VITALS: BP 137/70
[2022-10-30] MEDS ORDERED: NICOTINE 21MG/24HR 1 EA TRANSDERMAL TD SCH (21:00)
[2022-10-30] MEDS: traZODone 50 MG TAB PO SCH (22:39)
[2022-10-31 05:30] VITALS: BP 152/84
== END 2022-10-31 06:00 | disposition left against medical advice (07) | DRG 862 ==
LOC: M PM&R 12:00
PROVIDERS: ADMIT Physical Medicine & Rehabilitation; ATTEND Physical Medicine & Rehabilitation
DX: S06.6XAD Traumatic subarachnoid hemorrhage with loss of consciousness status unknown, subsequent encounter (principal); R13.10 Dysphagia, unspecified; I12.9 Hypertensive chronic kidney disease with stage 1 through stage 4 chronic kidney disease, or unspecified chronic kidney disease; R26.89 Other abnormalities of gait and mobility; G31.84 Mild cognitive impairment of uncertain or unknown etiology; F90.9 Attention-deficit hyperactivity disorder, unspecified type; F41.8 Other specified anxiety disorders; N18.9 Chronic kidney disease, unspecified; K21.9 Gastro-esophageal reflux disease without esophagitis; J45.909 Unspecified asthma, uncomplicated; G62.9 Polyneuropathy, unspecified; F41.0 Panic disorder [episodic paroxysmal anxiety]; S02.81XD Fracture of other specified skull and facial bones, right side, subsequent encounter for fracture with routine healing; Z74.1 Need for assistance with personal care; Z74.09 Other reduced mobility; F17.290 Nicotine dependence, other tobacco product, uncomplicated; G47.00 Insomnia, unspecified; Z79.899 Other long term (current) drug therapy; Z88.1 Allergy status to other antibiotic agents

== ENCOUNTER 2022-11-02 14:17 | Emergency (ER) | payer OTHER ==
[~2022-11-02 14:17] MED LIST changes: +ACET1TAB55 PO; +AMLO1TAB25 PO; +BISA10SU27 PR; +DOCU5LIQ PO; +PROP20TA72 PO; +QUET1TAB17 PO
[2022-11-02] MEDS ORDERED: METOCLOPRAMIDE 10MG TAB PO ONE (14:30)
[2022-11-02 15:32] LABS: BASO % 0.5 % (0.0-1.0); EOS % 0.5 % (0.0-3.0); HEMATOCRIT 36.3 % (42.0-52.0); HEMOGLOBIN 12.4 g/dl (13.5-17.5); LYMPH # 1.1 10^3/uL (1.5-5.0); LYMPH % 20.2 % (24.0-44.0); MEAN CORPUSCULAR HEMOGLOBIN 30.1 pg (27.0-33.0); MEAN CORPUSCULAR HGB CONC 34.2 g/dl (32.0-36.5); MEAN CORPUSCULAR VOLUME 88.1 fl (80.0-96.0); MONO # 0.5 10^3/uL (0.0-0.8); MONO % 8.5 % (2.0-8.0); NEUTROPHILS # 3.9 10^3/uL (1.5-8.5); NEUTROPHILS % 69.9 % (36.0-66.0); PLATELET COUNT, AUTOMATED 433 10^3/uL (150-450); RED BLOOD COUNT 4.12 10^6/uL (4.30-6.10); WHITE BLOOD COUNT 5.5 10^3/uL (4.0-10.0)
[2022-11-02 15:43] LABS: INR 0.82; PROTHROMBIN TIME 11.5 SECONDS (12.5-14.5)
[2022-11-02 15:56] LABS: ALKALINE PHOSPHATASE 133 U/L (46-116); ALT/SGPT 23 U/L (7.0-40); AST/SGOT < 8 U/L (<34); BILIRUBIN,DIRECT < 0.1 MG/DL (<0.4); BILIRUBIN,TOTAL 0.2 MG/DL (0.3-1.2); BLOOD UREA NITROGEN 15 MG/DL (9-23); CALCIUM LEVEL 8.1 MG/DL (8.5-10.1); CARBON DIOXIDE LEVEL 29 MMOL/L (20-31); CHLORIDE LEVEL 106 MMOL/L (98-107); CREATININE FOR GFR 0.91 MG/DL (0.70-1.30); GLOMERULAR FILTRATION RATE > 60.0 (>56); GLUCOSE, FASTING 124 MG/DL (60-100); POTASSIUM SERUM 3.8 MMOL/L (3.5-5.1); SODIUM LEVEL 140 MMOL/L (136-145); TOTAL PROTEIN 6.1 G/DL (5.7-8.2)
[2022-11-02 15:58] LABS: THYROID STIMULATING HORMONE 1.915 uIU/ML (0.55-4.78)
[2022-11-02 16:04] LABS: RSV AMPLIFICATION NEGATIVE (NEGATIVE)
[2022-11-02 16:30] VITALS: BP 144/94
== END 2022-11-02 17:02 | disposition short-term general hospital (02) ==
LOC: EDBD 14:17 → M ED 14:17
DX: S06.360A Traumatic hemorrhage of cerebrum, unspecified, without loss of consciousness, initial encounter (principal); F41.9 Anxiety disorder, unspecified; I10 Essential (primary) hypertension; F12.10 Cannabis abuse, uncomplicated; F17.200 Nicotine dependence, unspecified, uncomplicated; Z88.0 Allergy status to penicillin; Z88.1 Allergy status to other antibiotic agents; Z88.6 Allergy status to analgesic agent; Z79.811 Long term (current) use of aromatase inhibitors; Z79.899 Other long term (current) drug therapy

== ENCOUNTER 2023-05-09 22:18 | Emergency (ER) | payer OTHER ==
[~2023-05-09] VITALS: Ht 175.3 cm; Wt 83.4 kg
[~2023-05-09 22:18] MED LIST changes: -GABA-283 PO; +GABA-284 PO; +LORA1TAB23; -LORA1TAB4; -MIRT-62; +MIRT-88
[2023-05-10 00:09] VITALS: TEMP 97.3
[2023-05-10] MEDS ORDERED: methylPREDNISolone 125MG 2ML VIAL IV ONE (00:25)
[2023-05-10] MEDS ORDERED: FAMOTIDINE 20MG/2ML VIAL IVP ONE (00:25)
[2023-05-10] MEDS ORDERED: diphenhydrAMINE 50MG/ML VIAL IV ONE (00:25)
[2023-05-10] MEDS ORDERED: NS 1,000 ML IV ONE (00:30)
[2023-05-10] MEDS ORDERED: TRANEXAMIC ACID INJection 1,000 MG in D5W 100 ML IV ONE (00:35)
[2023-05-10 04:00] VITALS: BP 107/62
[2023-05-10] MEDS ORDERED: PRED20TA PO (04:06)
[2023-05-10 04:15] VITALS: O2SAT 95
[2023-05-11] MEDS ORDERED: LISI10TA22 PO (08:58)
== END 2023-05-10 05:04 | disposition home or self-care (01) ==
LOC: M ED 22:18
DX: T78.40XA Allergy, unspecified, initial encounter (principal); R21 Rash and other nonspecific skin eruption; I10 Essential (primary) hypertension; F17.200 Nicotine dependence, unspecified, uncomplicated; F41.9 Anxiety disorder, unspecified; F90.9 Attention-deficit hyperactivity disorder, unspecified type; Z79.811 Long term (current) use of aromatase inhibitors; Z79.1 Long term (current) use of non-steroidal anti-inflammatories (NSAID); Z79.899 Other long term (current) drug therapy; Z88.0 Allergy status to penicillin; Z88.1 Allergy status to other antibiotic agents; Z88.8 Allergy status to other drugs, medicaments and biological substances
CPT/HCPCS: 87486; 87581; 87633; 87798; 93041; 94760; 96374; 96375; 99285; J1200; J2930; S0028

== ENCOUNTER 2023-05-11 06:31 | Inpatient (IN) | payer OTHER ==
[~2023-05-11] VITALS: Ht 175.3 cm; Wt 86.6 kg
[~2023-05-11 06:31] MED LIST changes: +PRED20TA PO
[2023-05-11] MEDS ORDERED: dexAMETHasone 20MG/5ML VIAL IV ONE (07:00)
[2023-05-11] MEDS ORDERED: NS 1,000 ML IV ONE ×2 (07:00→09:05)
[2023-05-11] MEDS ORDERED: ONDANSETRON 4MG 2ML VIAL IV ONE (07:10)
[2023-05-11] MEDS: MORPHINE 4 MG/ML 1ML VIAL IV PRN ×4 (07:22→20:13)
[2023-05-11] MEDS ORDERED: ISOVUE-370 76% 100ML VIAL As Ordered ONE (07:30)
[2023-05-11 07:42] LABS: BASO % 0.2 % (0.0-1.0); HEMATOCRIT 37.4 % (42.0-52.0); HEMOGLOBIN 13.2 g/dl (13.5-17.5); LYMPH # 1.1 10^3/uL (1.5-5.0); LYMPH % 6.5 % (24.0-44.0); MEAN CORPUSCULAR HEMOGLOBIN 30.2 pg (27.0-33.0); MEAN CORPUSCULAR HGB CONC 35.3 g/dl (32.0-36.5); MEAN CORPUSCULAR VOLUME 85.6 fl (80.0-96.0); MONO % 9.5 % (2.0-8.0); NEUTROPHILS # 14.5 10^3/uL (1.5-8.5); NEUTROPHILS % 82.9 % (36.0-66.0); PLATELET COUNT, AUTOMATED 262 10^3/uL (150-450); RED BLOOD COUNT 4.37 10^6/uL (4.30-6.10); WHITE BLOOD COUNT 17.5 10^3/uL (4.0-10.0)
[2023-05-11 08:06] LABS: ALBUMIN 2.9 G/DL (3.2-5.2); ALKALINE PHOSPHATASE 85 U/L (46-116); ALT/SGPT 16 U/L (7.0-40); AST/SGOT 16 U/L (<34); BILIRUBIN,DIRECT 0.1 MG/DL (<0.4); BILIRUBIN,TOTAL 0.3 MG/DL (0.3-1.2); TOTAL PROTEIN 6.2 G/DL (5.7-8.2)
[2023-05-11] MEDS ORDERED: AMPICILLIN SOD/SULBACTAM SOD 3 GM in D5W MINI-BAG PLUS 100 ML IV ONE (08:10)
[2023-05-11] MEDS ORDERED: metroNIDAZOLE 500 MG in IV 1 EA IV ONE (08:10)
[2023-05-11] MEDS: NS 1,000 ML IV SCH ×2 (08:13→12:20)
[2023-05-11 08:19] LABS: MONO # 1.7 10^3/uL (0.0-0.8)
[2023-05-11] MEDS ORDERED: MED REC IN PROGRESS XX SCH (08:40)
[2023-05-11 08:48] LABS: MONO SCRN NEGATIVE (NEGATIVE)
[2023-05-11] MEDS ORDERED: LISI10TA22 PO (08:58)
[2023-05-11] MEDS ORDERED: NS 500 ML IV ONE (09:05)
[2023-05-11] MEDS ORDERED: HOME MED LIST COMPLETE! XX SCH (09:05)
[2023-05-11 09:51] LABS: BLOOD UREA NITROGEN 26 MG/DL (9-23); CALCIUM LEVEL 7.9 MG/DL (8.5-10.1); CARBON DIOXIDE LEVEL 23 MMOL/L (20-31); CHLORIDE LEVEL 102 MMOL/L (98-107); GLOMERULAR FILTRATION RATE > 60.0 (>56); GLUCOSE, FASTING 116 MG/DL (60-100); POTASSIUM SERUM 3.6 MMOL/L (3.5-5.1); SODIUM LEVEL 138 MMOL/L (136-145)
[2023-05-11 10:03] LABS: PROCALCITONIN 0.11 ng/ml
[2023-05-11] MEDS ORDERED: ACETAMINOPHEN 325 MG TAB PO PRN (13:10)
[2023-05-11 14:05] VITALS: BP 119/63; TEMP 98.2; O2SAT 91
[2023-05-11] MEDS: FAMOTIDINE 20 MG TAB PO SCH ×3 (14:25→20:12)
[2023-05-11] MEDS: AMPICILLIN SOD/SULBACTAM SOD 3 GM in D5W MINI-BAG PLUS 100 ML IV SCH ×2 (14:49→20:13)
[2023-05-11 15:39] VITALS: BP 109/62; TEMP 98.6; O2SAT 92
[2023-05-11] MEDS: dexAMETHasone 20MG/5ML VIAL IV SCH (18:08)
[2023-05-11 19:25] VITALS: BP 102/57; TEMP 97.4; O2SAT 90
[2023-05-11] MEDS: traZODone 100 MG TAB PO SCH (20:12)
[2023-05-11] MEDS: ENOXAPARIN 40MG/0.4ML SYRINGE (J1650 PER 10MG) SC SCH (20:13)
[2023-05-12] VITALS (7 sets, daily range): BP systolic 98–150; BP diastolic 56–86; TEMP 96.6–99; O2SAT 92–98
[2023-05-12] MEDS: ACETAMINOPHEN TAB 650MG DOSE (2X325MG) PO PRN ×3 (01:10→14:56)
[2023-05-12] MEDS: MORPHINE 4 MG/ML 1ML VIAL IV PRN ×4 (04:24→21:42)
[2023-05-12] MEDS: AMPICILLIN SOD/SULBACTAM SOD 3 GM in D5W MINI-BAG PLUS 100 ML IV SCH ×2 (04:24→08:30)
[2023-05-12 05:05] LABS: HEMATOCRIT 31.4 % (42.0-52.0); MEAN CORPUSCULAR HEMOGLOBIN 30.1 pg (27.0-33.0); MEAN CORPUSCULAR HGB CONC 34.7 g/dl (32.0-36.5); MEAN CORPUSCULAR VOLUME 86.7 fl (80.0-96.0); PLATELET COUNT, AUTOMATED 232 10^3/uL (150-450); RED BLOOD COUNT 3.62 10^6/uL (4.30-6.10); WHITE BLOOD COUNT 15.8 10^3/uL (4.0-10.0)
[2023-05-12 05:11] LABS: HEMOGLOBIN 10.9 g/dl (13.5-17.5)
[2023-05-12 05:27] LABS: BLOOD UREA NITROGEN 23 MG/DL (9-23); CALCIUM LEVEL 7.6 MG/DL (8.5-10.1); CARBON DIOXIDE LEVEL 26 MMOL/L (20-31); CHLORIDE LEVEL 107 MMOL/L (98-107); CREATININE FOR GFR 0.96 MG/DL (0.70-1.30); GLOMERULAR FILTRATION RATE > 60.0 (>56); GLUCOSE, FASTING 169 MG/DL (60-100); POTASSIUM SERUM 4.2 MMOL/L (3.5-5.1); SODIUM LEVEL 141 MMOL/L (136-145)
[2023-05-12] MEDS: dexAMETHasone 20MG/5ML VIAL IV SCH (06:30)
[2023-05-12] MEDS: FAMOTIDINE 20 MG TAB PO SCH ×2 (08:26→20:16)
[2023-05-12] MEDS: ADDERALL 5 MG TAB PO SCH (08:27)
[2023-05-12] MEDS: predniSONE 10MG TAB PO SCH (12:33)
[2023-05-12] MEDS: ENOXAPARIN 40MG/0.4ML SYRINGE (J1650 PER 10MG) SC SCH (20:16)
[2023-05-12] MEDS: CelecoXIB (CeleBREX) 100 MG CAP PO PRN (20:16)
[2023-05-12] MEDS: traZODone 100 MG TAB PO SCH (20:16)
[2023-05-13] MEDS ORDERED: clonazePAM 0.5 MG TAB PO ONE (01:00)
[2023-05-13] MEDS: MORPHINE 4 MG/ML 1ML VIAL IV PRN (03:17)
[2023-05-13 05:54] VITALS: BP 153/94; TEMP 98.6; O2SAT 98
[2023-05-13 06:10] LABS: BASO % 0.1 % (0.0-1.0); HEMATOCRIT 35.3 % (42.0-52.0); HEMOGLOBIN 12.3 g/dl (13.5-17.5); LYMPH # 1.1 10^3/uL (1.5-5.0); LYMPH % 6.8 % (24.0-44.0); MEAN CORPUSCULAR HEMOGLOBIN 29.9 pg (27.0-33.0); MEAN CORPUSCULAR HGB CONC 34.8 g/dl (32.0-36.5); MEAN CORPUSCULAR VOLUME 85.7 fl (80.0-96.0); MONO # 0.8 10^3/uL (0.0-0.8); MONO % 4.7 % (2.0-8.0); NEUTROPHILS # 14.1 10^3/uL (1.5-8.5); NEUTROPHILS % 86.9 % (36.0-66.0); PLATELET COUNT, AUTOMATED 298 10^3/uL (150-450); RED BLOOD COUNT 4.12 10^6/uL (4.30-6.10); WHITE BLOOD COUNT 16.2 10^3/uL (4.0-10.0)
[2023-05-13 06:36] LABS: BLOOD UREA NITROGEN 29 MG/DL (9-23); CARBON DIOXIDE LEVEL 26 MMOL/L (20-31); CHLORIDE LEVEL 104 MMOL/L (98-107); CREATININE FOR GFR 0.94 MG/DL (0.70-1.30); GLOMERULAR FILTRATION RATE > 60.0 (>56); GLUCOSE, FASTING 136 MG/DL (60-100); POTASSIUM SERUM 3.9 MMOL/L (3.5-5.1); SODIUM LEVEL 139 MMOL/L (136-145)
[2023-05-13 08:00] VITALS: BP 172/96; TEMP 98.6
[2023-05-13] MEDS ORDERED: AUGMENTIN 875 MG TAB PO SCH (09:00)
[2023-05-13] MEDS: CelecoXIB (CeleBREX) 100 MG CAP PO PRN (09:37)
[2023-05-13] MEDS: predniSONE 10MG TAB PO SCH (09:37)
[2023-05-13 09:38] VITALS: BP 172/96
[2023-05-13] MEDS: FAMOTIDINE 20 MG TAB PO SCH (09:39)
[2023-05-13 09:45] VITALS: BP 172/96; TEMP 98.6
[2023-05-13] MEDS: ADDERALL 5 MG TAB PO SCH (10:30)
[2023-05-13] MEDS ORDERED: AMOX875T2 PO (10:42)
== END 2023-05-13 10:45 | disposition left against medical advice (07) | DRG 0 ==
LOC: M ED 06:31 → EDBD 06:31 → M ED INP 08:49 → M PCU 14:06 → M MSPAV 05-12 17:54
PROVIDERS: ADMIT Internal Medicine; ATTEND Family Medicine
PROC: 0CJS8ZZ Inspection of Larynx, Via Natural or Artificial Opening Endoscopic (ICD-10-PCS; principal; 2023-05-12)
DX: L03.221 Cellulitis of neck (principal); I10 Essential (primary) hypertension; F39 Unspecified mood [affective] disorder; F90.9 Attention-deficit hyperactivity disorder, unspecified type; K21.9 Gastro-esophageal reflux disease without esophagitis; R59.9 Enlarged lymph nodes, unspecified; R73.9 Hyperglycemia, unspecified; Z79.899 Other long term (current) drug therapy; D72.829 Elevated white blood cell count, unspecified; Z88.0 Allergy status to penicillin; Z88.8 Allergy status to other drugs, medicaments and biological substances

== ENCOUNTER 2023-08-11 13:09 | Emergency (ER) | payer MEDICAID, OTHER ==
[~2023-08-11] VITALS: Ht 175.3 cm; Wt 86.5 kg
[~2023-08-11 13:09] MED LIST changes: +AMOX875T2 PO; +LISI10TA22 PO
[2023-08-11 13:10] VITALS: BP 146/92; TEMP 97.2; O2SAT 95
== END 2023-08-11 15:17 | disposition left against medical advice (07) ==
LOC: M ED 15:15
DX: Z53.21 Procedure and treatment not carried out due to patient leaving prior to being seen by health care provider (principal)

== ENCOUNTER → 2023-09-23 | Outpatient (REF) | payer OTHER | LOC: M LAB REF 12:00 | PROVIDERS: ATTEND Student in an Organized Health Care Education/Training Program | DX: F90.1 Attention-deficit hyperactivity disorder, predominantly hyperactive type (principal); Z53.9 Procedure and treatment not carried out, unspecified reason ==

== ENCOUNTER 2023-10-14 19:15 | Emergency (ER) | payer MEDICAID, OTHER ==
[~2023-10-14] VITALS: Ht 175.3 cm; Wt 89.5 kg
[2023-10-14 19:20] VITALS: BP 134/69; TEMP 98.9; O2SAT 95
== END 2023-10-14 21:06 | disposition left against medical advice (07) ==
LOC: M ED 19:15
DX: Z53.21 Procedure and treatment not carried out due to patient leaving prior to being seen by health care provider (principal)

== ENCOUNTER 2023-11-12 12:13 | Emergency (ER) | payer MEDICAID, OTHER ==
[~2023-11-12] VITALS: Ht 175.3 cm; Wt 90.9 kg
[2023-11-12 12:26] VITALS: BP 150/93; TEMP 98.1; O2SAT 94
[2023-11-12 12:56] LABS: BASO % 0.7 % (0.0-1.0); EOS # 0.1 10^3/uL (0.0-0.5); EOS % 1.7 % (0.0-3.0); HEMATOCRIT 38.9 % (42.0-52.0); HEMOGLOBIN 13.9 g/dl (13.5-17.5); LYMPH # 1.4 10^3/uL (1.5-5.0); LYMPH % 23.5 % (24.0-44.0); MEAN CORPUSCULAR HEMOGLOBIN 30.3 pg (27.0-33.0); MEAN CORPUSCULAR HGB CONC 35.7 g/dl (32.0-36.5); MEAN CORPUSCULAR VOLUME 84.9 fl (80.0-96.0); MONO # 0.5 10^3/uL (0.0-0.8); MONO % 8.1 % (2.0-8.0); NEUTROPHILS # 3.8 10^3/uL (1.5-8.5); NEUTROPHILS % 65.5 % (36.0-66.0); PLATELET COUNT, AUTOMATED 256 10^3/uL (150-450); RED BLOOD COUNT 4.58 10^6/uL (4.30-6.10); WHITE BLOOD COUNT 5.8 10^3/uL (4.0-10.0)
[2023-11-12 13:25] LABS: ETHYL ALCOHOL (ETHANOL) < 0.003 % (0.000-0.010)
[2023-11-12 13:27] LABS: ALBUMIN 3.3 G/DL (3.2-5.2); ALKALINE PHOSPHATASE 100 U/L (46-116); ALT/SGPT 27 U/L (7.0-40); AST/SGOT 23 U/L (<34); BILIRUBIN,DIRECT < 0.1 MG/DL (<0.4); BILIRUBIN,TOTAL 0.3 MG/DL (0.3-1.2); BLOOD UREA NITROGEN 18 MG/DL (9-23); CALCIUM LEVEL 8.2 MG/DL (8.5-10.1); CARBON DIOXIDE LEVEL 26 MMOL/L (20-31); CHLORIDE LEVEL 103 MMOL/L (98-107); CREATININE FOR GFR 1.12 MG/DL (0.70-1.30); GLOMERULAR FILTRATION RATE > 60.0 (>56); GLUCOSE, FASTING 105 MG/DL (60-100); SODIUM LEVEL 137 MMOL/L (136-145); TOTAL PROTEIN 5.9 G/DL (5.7-8.2)
[2023-11-12 13:31] LABS: THYROID STIMULATING HORMONE 4.723 uIU/ML (0.55-4.78)
[2023-11-12 13:36] LABS: BARBITURATES URINE NEGATIVE (NEGATIVE); BENZODIAZEPINES URINE NEGATIVE (NEGATIVE); COCAINE METABOLITE URINE NEGATIVE (NEGATIVE); METHADONE URINE NEGATIVE (NEGATIVE); OPIATES URINE NEGATIVE (NEGATIVE); PHENCYCLIDINE URINE NEGATIVE (NEGATIVE)
[2023-11-12 13:37] LABS: AMPHETAMINES LEVEL URINE POSITIVE (NEGATIVE); CANNABINOIDS URINE POSITIVE (NEGATIVE)
[2023-11-12 13:42] LABS: OSMOLALITY SERUM 293 MOSM/KG (275-295)
== END 2023-11-12 13:37 | disposition left against medical advice (07) ==
LOC: M ED 12:13 → EDBD 12:13 → M ED 13:37
DX: R55 Syncope and collapse (principal); G40.909 Epilepsy, unspecified, not intractable, without status epilepticus; I10 Essential (primary) hypertension; N18.30 Chronic kidney disease, stage 3 unspecified; F17.200 Nicotine dependence, unspecified, uncomplicated; F90.9 Attention-deficit hyperactivity disorder, unspecified type; Z88.0 Allergy status to penicillin; Z88.1 Allergy status to other antibiotic agents; Z88.6 Allergy status to analgesic agent; Z87.820 Personal history of traumatic brain injury; Z79.811 Long term (current) use of aromatase inhibitors; Z79.899 Other long term (current) drug therapy; Y92.513 Shop (commercial) as the place of occurrence of the external cause; Y93.9 Activity, unspecified; Z53.9 Procedure and treatment not carried out, unspecified reason

== ENCOUNTER 2023-11-12 17:56 | Emergency (ER) | payer MEDICAID, OTHER ==
[~2023-11-12] VITALS: Ht 175.3 cm; Wt 90.6 kg
[2023-11-12] MEDS: IBUPROFEN 800 MG TAB PO ONE (20:56)
[2023-11-12] MEDS: DERMABOND TOPICAL SKIN ADHESIVE TOP ONE (20:57)
[2023-11-12] MEDS: NICOTINE 21MG/24HR 1 EA TRANSDERMAL TD ONE (21:27)
[2023-11-12] MEDS: ACETAMINOPHEN *IV* 1,000 MG in IV 1 EA IV ONE (21:27)
[2023-11-12] MEDS: ALPRAZolam 0.25 MG TAB PO ONE (21:27)
[2023-11-12] MEDS: fentaNYL 100 MCG/2 ML INJECTION IV ONE (22:54)
[2023-11-12 23:37] VITALS: BP 165/99; TEMP 96.8; O2SAT 99
[2023-11-12] MEDS ORDERED: LABETALOL 100MG/20ML VIAL As Ordered ONE (23:38)
[2023-11-13] MEDS ORDERED: LABETALOL 100MG/20ML VIAL IV STA (04:16)
[2023-11-13] MEDS ORDERED: LABETALOL 100MG/20ML VIAL IV ONE (04:16)
== END 2023-11-13 00:07 | disposition short-term general hospital (02) ==
LOC: M ED 17:56
DX: S06.5X0A Traumatic subdural hemorrhage without loss of consciousness, initial encounter (principal); W19.XXXA Unspecified fall, initial encounter; I10 Essential (primary) hypertension; N18.9 Chronic kidney disease, unspecified; F17.200 Nicotine dependence, unspecified, uncomplicated; F90.9 Attention-deficit hyperactivity disorder, unspecified type; F41.9 Anxiety disorder, unspecified; Z87.820 Personal history of traumatic brain injury; Z88.0 Allergy status to penicillin; Z88.1 Allergy status to other antibiotic agents; Z88.6 Allergy status to analgesic agent; Z79.811 Long term (current) use of aromatase inhibitors; Z79.899 Other long term (current) drug therapy; Y92.9 Unspecified place or not applicable; Y93.9 Activity, unspecified; Y99.9 Unspecified external cause status
CPT/HCPCS: 12011; 70450; 96365; 96366; 96375; 99284; J0131; J3010

== ENCOUNTER → 2024-08-26 | Outpatient (REF) | payer OTHER | LOC: M SFHCPLAZ 17:00 | PROVIDERS: ATTEND Internal Medicine Hematology | DX: Z53.9 Procedure and treatment not carried out, unspecified reason (principal) ==

== ENCOUNTER 2025-01-18 15:31 | Emergency (ER) | payer OTHER ==
[~2025-01-18] VITALS: Ht 175.3 cm; Wt 88.3 kg
[~2025-01-18 15:31] MED LIST changes: +AMLO-751 PO; -AMLO10TA PO; +AMPH1CAP5 PO; +D-AMPHETAMINE; +D-AMPHETAMINE PO; +LISI40TA10; +LISI40TA10 PO; -LISI40TA4; -LISI40TA4 PO
[2025-01-18 18:25] VITALS: BP 142/67; TEMP 97.4; O2SAT 99
== END 2025-01-18 18:26 | disposition home or self-care (01) ==
LOC: M ED 15:31
DX: J06.9 Acute upper respiratory infection, unspecified (principal); B34.8 Other viral infections of unspecified site; F90.9 Attention-deficit hyperactivity disorder, unspecified type; F17.200 Nicotine dependence, unspecified, uncomplicated; F12.10 Cannabis abuse, uncomplicated; Z88.0 Allergy status to penicillin; Z88.8 Allergy status to other drugs, medicaments and biological substances; Z79.1 Long term (current) use of non-steroidal anti-inflammatories (NSAID); Z79.899 Other long term (current) drug therapy

== ENCOUNTER → 2025-03-09 | Outpatient (REF) | payer OTHER ==
[~2025-03-09] MED LIST changes: -IBUP-1022 PO; +IBUP600T42 PO
== END ==
LOC: M SFHCPLAZ 23:06
PROVIDERS: ATTEND Family Medicine
DX: Z53.9 Procedure and treatment not carried out, unspecified reason (principal)

== ENCOUNTER 2025-05-24 15:31 | Emergency (ER) | payer OTHER ==
[~2025-05-24] VITALS: Ht 175.3 cm; Wt 83.5 kg
[2025-05-24] MEDS ORDERED: METH54TA13 (15:44)
[2025-05-24] MEDS ORDERED: IBUP200C25 PO (15:44)
[2025-05-24 18:39] VITALS: BP 157/90; TEMP 97.7; O2SAT 100
== END 2025-05-24 19:27 | disposition left against medical advice (07) ==
LOC: M ED 15:31
DX: Z53.21 Procedure and treatment not carried out due to patient leaving prior to being seen by health care provider (principal)

== ENCOUNTER 2025-05-28 14:37 | Inpatient (IN) | payer OTHER ==
[~2025-05-28] VITALS: Ht 170.2 cm; Wt 87.3 kg
[~2025-05-28 14:37] MED LIST changes: +IBUP200C25 PO; +METH54TA13 PO
[2025-05-28 15:38] LABS: PLATELET COUNT, AUTOMATED 250 10^3/uL (150-450)
[2025-05-28 16:10] LABS: ETHYL ALCOHOL (ETHANOL) < 0.003 % (0.000-0.010)
[2025-05-28 16:12] LABS: ALT/SGPT 25 U/L (7.0-40); AST/SGOT 23 U/L (<34); CALCIUM LEVEL 8.3 MG/DL (8.5-10.1); CARBON DIOXIDE LEVEL 30 MMOL/L (20-31); CHLORIDE LEVEL 102 MMOL/L (98-107); CREATININE FOR GFR 1.12 MG/DL (0.70-1.30); GLOMERULAR FILTRATION RATE 77.1 (>56); POTASSIUM SERUM 4.0 MMOL/L (3.5-5.1); SALICYLATE LEVEL < 3.0 MG/DL (<30); SODIUM LEVEL 140 MMOL/L (136-145)
[2025-05-28 16:32] LABS: AMPHETAMINES LEVEL URINE NEGATIVE (NEGATIVE); BARBITURATES URINE NEGATIVE (NEGATIVE); BENZODIAZEPINES URINE NEGATIVE (NEGATIVE); COCAINE METABOLITE URINE NEGATIVE (NEGATIVE); METHADONE URINE NEGATIVE (NEGATIVE); OPIATES URINE NEGATIVE (NEGATIVE); PHENCYCLIDINE URINE NEGATIVE (NEGATIVE)
[2025-05-28 16:40] LABS: CANNABINOIDS URINE POSITIVE (NEGATIVE)
[2025-05-28] MEDS ORDERED: BENZ200C70 PO (17:36)
[2025-05-28] MEDS ORDERED: CEFU1TAB20 PO (17:36)
[2025-05-28] MEDS: ACETAMINOPHEN 325 MG TAB PO PRN (18:11)
[2025-05-28] MEDS: BENZONATATE 100 MG CAPSULE PO PRN (18:11)
[2025-05-28] MEDS ORDERED: MOM 30 ML SUSPENSION UDC PO PRN (18:20)
[2025-05-28] MEDS ORDERED: CALCIUM CARBONATE 500 MG CHEW U/D PO PRN (18:30)
[2025-05-28] MEDS ORDERED: VENTAER INH (18:39)
[2025-05-28] MEDS ORDERED: HOME MED LIST COMPLETE! XX SCH (18:40)
[2025-05-28] MEDS ORDERED: ACETAMINOPHEN 325 MG TAB PO PRN (18:48)
[2025-05-28] MEDS: MAALOX 30 ML SUSP *UDC PO PRN (19:11)
[2025-05-28] MEDS ORDERED: IPRATROPIUM 0.5 MG/ALBUTEROL 2.5 MG INH SOL UD 3 ML NEB PRN (20:10)
[2025-05-28] MEDS ORDERED: BENZONATATE 100 MG CAPSULE PO PRN (20:55)
[2025-05-28] MEDS ORDERED: traZODone 100 MG TAB PO SCH (21:00)
[2025-05-28] MEDS ORDERED: CEFUROXIME 500 MG TAB PO SCH (21:00)
[2025-05-28 21:05] VITALS: BP 121/79; TEMP 98.5; O2SAT 97
[2025-05-28] MEDS: traZODone 100 MG TAB PO SCH (21:47)
[2025-05-28] MEDS: UNRESOLVED CLARIFICATION ENTRY XX SCH (22:06)
[2025-05-29] MEDS ORDERED: amLODIPine 10 MG TAB PO SCH (09:00)
[2025-05-29] MEDS ORDERED: METHYLPHENIDATE ER 18 MG TABLET PO SCH (09:00)
[2025-05-29] MEDS: amLODIPine 10 MG TAB PO SCH (09:26)
[2025-05-29] MEDS: BENZONATATE 100 MG CAPSULE PO PRN (09:30)
[2025-05-29] MEDS: NICOTINE 14 MG/24 HR TRANSDERMAL TD SCH (10:55)
[2025-05-29] MEDS: DEXTROAMPHETAMINE/AMPHETAMINE 5 MG *ER* CAPSULE PO SCH (12:54)
[2025-05-29 15:58] VITALS: BP 137/80; TEMP 98.3; O2SAT 98
[2025-05-29] MEDS: DIVALPROEX 500 MG *ER* TAB PO SCH (20:50)
[2025-05-30 06:46] VITALS: BP 128/82; TEMP 97.9; O2SAT 99
[2025-05-30 16:21] VITALS: BP 127/78; TEMP 98.5; O2SAT 99
[2025-05-31 06:32] VITALS: BP 140/88; TEMP 98.2; O2SAT 99
[2025-05-31 08:00] VITALS: BP 140/88
[2025-05-31] MEDS ORDERED: DEPA500T2 PO (08:19)
[2025-05-31] MEDS ORDERED: ADDE20CA3 PO (08:19)
[2025-05-31] MEDS ORDERED: TRAZ1TAB14 PO (08:19)
== END 2025-05-31 09:55 | disposition home or self-care (01) | DRG 756 ==
LOC: M ED 14:37 → M ED INP 18:27 → M PSY 20:20
PROVIDERS: ADMIT General Practice; ATTEND General Practice
DX: F41.1 Generalized anxiety disorder (principal); Z91.148 Patient's other noncompliance with medication regimen for other reason; I10 Essential (primary) hypertension; F41.0 Panic disorder [episodic paroxysmal anxiety]; F39 Unspecified mood [affective] disorder; Z87.820 Personal history of traumatic brain injury; F90.9 Attention-deficit hyperactivity disorder, unspecified type; G47.00 Insomnia, unspecified; Z88.0 Allergy status to penicillin; Z88.8 Allergy status to other drugs, medicaments and biological substances; Z79.899 Other long term (current) drug therapy; K21.9 Gastro-esophageal reflux disease without esophagitis; M54.50 Low back pain, unspecified; F17.200 Nicotine dependence, unspecified, uncomplicated; R73.02 Impaired glucose tolerance (oral)

== ENCOUNTER → 2025-06-07 | Outpatient (REF) | payer OTHER ==
[~2025-06-07] MED LIST changes: +ADDE20CA3 PO; +BENZ200C70 PO; +CEFU1TAB20 PO; +DEPA500T2 PO; +VENTAER INH
[2025-06-07 12:34] LABS: CREATININE, URINE 34.9 MG/DL; MALB URINE SIEMENS < 3.0 MG/L
== END ==
LOC: M LAB REF 11:43
PROVIDERS: ATTEND Student in an Organized Health Care Education/Training Program
DX: I10 Essential (primary) hypertension (principal); F90.9 Attention-deficit hyperactivity disorder, unspecified type

== ENCOUNTER 2025-06-14 18:01 | Emergency (ER) | payer OTHER ==
[~2025-06-14] VITALS: Ht 175.3 cm; Wt 89.0 kg
[2025-06-14 18:04] VITALS: TEMP 96.7
[2025-06-14 20:00] VITALS: BP 170/100; O2SAT 96
== END 2025-06-14 22:32 | disposition home or self-care (01) ==
LOC: M ED 18:01
DX: Z76.0 Encounter for issue of repeat prescription (principal); I10 Essential (primary) hypertension; F41.0 Panic disorder [episodic paroxysmal anxiety]; N18.9 Chronic kidney disease, unspecified; Z88.0 Allergy status to penicillin; Z88.8 Allergy status to other drugs, medicaments and biological substances; Z79.1 Long term (current) use of non-steroidal anti-inflammatories (NSAID); Z79.899 Other long term (current) drug therapy; Z79.52 Long term (current) use of systemic steroids

== ENCOUNTER 2025-06-29 16:14 | Emergency (ER) | payer OTHER ==
[~2025-06-29] VITALS: Ht 175.3 cm; Wt 89.4 kg
[2025-06-29] MEDS ORDERED: ADDE30CA3 PO (19:11)
[2025-06-29 19:18] VITALS: BP 145/81; TEMP 97.7; O2SAT 99
== END 2025-06-29 19:22 | disposition home or self-care (01) ==
LOC: M ED 16:14
DX: Z76.0 Encounter for issue of repeat prescription (principal); I10 Essential (primary) hypertension; F17.200 Nicotine dependence, unspecified, uncomplicated; N18.9 Chronic kidney disease, unspecified; Z88.0 Allergy status to penicillin; Z88.8 Allergy status to other drugs, medicaments and biological substances; Z79.52 Long term (current) use of systemic steroids; Z79.899 Other long term (current) drug therapy; Z79.1 Long term (current) use of non-steroidal anti-inflammatories (NSAID)

== ENCOUNTER → 2025-07-05 | Outpatient (REF) | payer OTHER ==
[2025-07-05 15:12] LABS: BASO # 0.0 10^3/uL (0.0-0.2); BASO % 0.5 % (0.0-1.0); EOS # 0.1 10^3/uL (0.0-0.5); EOS % 1.0 % (0.0-3.0); LYMPH # 1.2 10^3/uL (1.5-5.0); LYMPH % 19.7 % (24.0-44.0); MONO # 0.6 10^3/uL (0.0-0.8); MONO % 10.1 % (2.0-8.0); NEUTROPHILS # 4.3 10^3/uL (1.5-8.5); NEUTROPHILS % 68.5 % (36.0-66.0); PLATELET COUNT, AUTOMATED 262 10^3/uL (150-450)
[2025-07-05 15:13] LABS: ALT/SGPT 18.0 U/L (7.0-40); AST/SGOT 16.0 U/L (<34); CALCIUM LEVEL 8.5 MG/DL (8.5-10.1); CARBON DIOXIDE LEVEL 29.0 MMOL/L (20-31); CHLORIDE LEVEL 107.0 MMOL/L (98-107); CREATININE FOR GFR 0.99 MG/DL (0.70-1.30); GLOMERULAR FILTRATION RATE 89.4 (>56); POTASSIUM SERUM 4.7 MMOL/L (3.5-5.1); SODIUM LEVEL 141.0 MMOL/L (136-145)
== END ==
LOC: M LAB REF 14:53
PROVIDERS: ATTEND Student in an Organized Health Care Education/Training Program
DX: F41.8 Other specified anxiety disorders (principal)